=== PATIENT | male | born 1940 | race Caucasian/White ===

== ENCOUNTER 2020-11-19 10:12 | Outpatient (CLI) | payer MEDICARE, SELFPAY ==
--- NOTE | ~2020-11-19 | NM_ITS ---
EXAMINATION: NM bone scan whole body DATE: 11/19/2020 15:30 INDICATION: Prostate cancer. TECHNIQUE: 25 mCi Tc-99m HDP was administered intravenously. Delayed whole-body scintigrams were obt ained. COMPARISON: Chest 2 views 01/04/2019 FINDINGS: There is increased activity at left glenohumeral joint and the sternoclavicular joints ilda elating with osteoarthritis on radiographs. There is disc-centered increased activity in the spine co rrelating with severe degenerative disc disease on radiographs. There is joint-centered increased act ivity in the wrists and left foot without radiographic comparison, likely osteoarthritis. IMPRESSION: 1. No evidence of metastatic disease. Reviewed, dictated and finalized at location A.
== END 2020-11-19 10:13 | disposition home or self-care (01) ==
LOC: ANHIMG 10:19
PROVIDERS: PCP Family Medicine; Visit Provider Radiology Radiation Oncology
DX: C61 Malignant neoplasm of prostate (principal)
CPT/HCPCS: 78306; A9561

== ENCOUNTER 2020-12-31 09:42 | Outpatient (CLI) | payer MEDICARE, SELFPAY ==
--- NOTE | ~2020-12-31 | MR_ITS ---
. EXAMINATION: MR pelvis wo con DATE: 12/31/2020 11:20 INDICATION: Malignant neoplasm of the prostate TECHNIQUE: Magnetic resonance imaging (MRI) of the pelvis was performed without intravenous contrast. [place] sequences of the pelvis included axial and coronal T2-weighted SS FSE, axial, sagittal and coronal 2D FIESTA, axial 2D FIESTA FS, axial SSFSE-IR LEVY, axial dual-echo T1-weighted FSPGR, axial and coronal T1 weighted LAVA, 3D axial T2 Cube, axial diffusion-weighted SE with apparent diffusion c oefficient (ADC) maps. COMPARISON: None. FINDINGS: The prostate measures 4.2 x 2.5 x 4.4 cm. There is an approximately 1.6 cm exophytic nodule arising f rom the anterosuperior margin of the prostate which projects into the lumen of the bladder. There is mild trabeculation of the mucosal surface of the bladder with a couple small bladder diverticula. The re is a 4.4 x 2.5 x 1.3 cm T2 hyperintense collection of hydrogel is located between the anterior wal l of the rectum and the prostate. The collection of hydrogen gel is eccentrically positioned, greater towards the left with minimal separation between the right posterior margin of the prostate and the rectum. Small bilateral fat-containing inguinal hernias. No pathologically enlarged pelvic or inguina l lymphadenopathy. Mild lumbar levocurvature with severe spondylosis. No pathologic marrow replacing process. Visualized portion of the bowels are unremarkable. IMPRESSION: 1. Mildly enlarged prostate with small exophytic nodule projecting into the base of the bladder. 2. 4.5 x 2.5 x 1.3 cm collection of hydrocele positioned between the bladder and the rectum although this is eccentric repositioned and a small portion of the right posterior margin of the prostate ashanti ins in relatively close proximity to the rectum. 3. No evident metastatic disease. Reviewed, dictated and finalized at location A. IMPRESSION: 1. Mildly enlarged prostate with small exophytic nodule projecting into the bas e of the bladder. 2. 4.5 x 2.5 x 1.3 cm collection of hydrocele positioned between the bladder an d the rectum although this is eccentric repositioned and a small portion of the right posterior margin of the prostate remains in relatively close proximity t o the rectum. 3. No evident metastatic disease.
[2020-12-31 10:16] LABS: Estimated Glomerular Filt Rate 30
== END 2020-12-31 09:43 | disposition home or self-care (01) ==
PROVIDERS: PCP Family Medicine; Visit Provider Radiology Radiation Oncology
DX: C61 Malignant neoplasm of prostate (principal)
CPT/HCPCS: 72195

== ENCOUNTER → 2021-05-12 13:52 | Outpatient (CLI) | payer MEDICARE, SELFPAY ==
--- NOTE | ~2021-05-12 | MR_ITS ---
EXAMINATION: MR brain/brain stem wo con DATE: 05/12/2021 15:20 INDICATION: Other amnesia. TECHNIQUE: Magnetic resonance imaging (MRI) of the brain and brainstem was performed without intraven ous contrast. Sequences included sagittal and axial T1-weighted FSE, axial diffusion-weighted FS EPI, axial T2*-weighted GRE, axial T2-weighted FLAIR Propeller, and axial T2-weighted Propeller. Apparent diffusion coefficient (ADC) maps were created. COMPARISON: None. FINDINGS: There are scattered areas of nonspecific increased T2-weighted signal intensity in the cere bral white matter. There are old infarcts in right cerebellum and the nafisa. There is a small old infa rct in the left parietal periventricular white matter. There are scattered foci of old microhemorrhag e in the brain including the right cerebellum, right thalamus, and right lentiform nucleus. There is no acute infarction or abnormal intracranial mass lesion. The ventricles are normal in size. There ar e likely changes of ocular lens replacement surgeries. The paranasal sinuses are clear. The mastoid a ir cells are normal. IMPRESSION: 1. Old infarcts involving the right cerebellum, nafisa, and left parietal lobe. 2. 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 Reviewed, dictated and finalized at location A. DISPATCHER
--- NOTE | ~2021-05-12 | XR_ITS ---
EXAMINATION: XR orbit foreign body EXAM DATE: 05/12/2021 14:46 INDICATION: Checking for foreign body . TECHNIQUE: Frontal, lateral projections of the orbits. There is no prior study for comparison. FINDINGS: Dental bridge, hardware. No other radiopaque foreign bodies are identified. Orbital rims a re intact. Sinuses appear aerated. IMPRESSION: No unexpected radiopaque foreign bodies. Reviewed, dictated and finalized at location G. INALIST
[2021-05-12 14:57] LABS: Estimated Glomerular Filt Rate 26
== END ==
PROVIDERS: PCP Family Medicine; Visit Provider Physician Assistant
DX: R41.3 Other amnesia (principal); R93.0 Abnormal findings on diagnostic imaging of skull and head, not elsewhere classified
CPT/HCPCS: 70030; 70551

== ENCOUNTER 2021-09-18 10:38 | Outpatient (CLI) | payer MEDICARE, SELFPAY ==
--- NOTE | 2021-09-21 09:36 | WPDNEUROLOGY ---
Neurology EEG Report General Information Date of Study: 09/18/21 TEST eeg DIAGNOSIS dementia CONDITION OF RECORDING drowsy and sleep EEG NUMBER [id number] CLINICAL HISTORY patient reports he has noticed a decline in his memory over the last year or so there is a family history of dementia as well EEG DESCRIPTION basic resting occipital frequency consists of low-voltage 15 to 18 hertz per 2nd beta during drowsiness. Bilateral symmetrical sleep activity is noted during sleep with multiple EKG artifacts. Hyperventilation not done. Photic stimulation produced poor drive. Non paroxysmal. Nonfocal. Nonlateralizing. IMPRESSION no significant abnormalities noted
== END 2021-09-18 10:39 | disposition home or self-care (01) ==
PROVIDERS: PCP Family Medicine; Visit Provider Psychiatry & Neurology Neurology
DX: R41.3 Other amnesia (principal)
CPT/HCPCS: 95816

== ENCOUNTER 2021-11-19 06:55 | Observation (INO) | payer MEDICARE, SELFPAY ==
[2021-11-19] VITALS (24 sets, daily range): BP systolic 126–164; BP diastolic 56–74; PULSE 53–75; RESP 12–17; TEMP 36.5–37; O2SAT 92–100; BMI 60.9
--- NOTE | ~2021-11-19 | MR_ITS ---
EXAMINATION: MR brain/brain stem wo/w con DATE: 11/19/2021 12:11 INDICATION: Dysarthria. TECHNIQUE: Magnetic resonance imaging (MRI) of the brain and brainstem was performed without and with 16 mL MultiHance intravenous contrast. COMPARISON: Brain MRI 05/12/2021, head CT 11/19/2021 FINDINGS: There are scattered areas of nonspecific increased T2-weighted signal intensity in the cere bral white matter and nafisa. There are small old infarcts in right cerebellum and the nafisa. There are punctate foci of old microhemorrhage in the right cerebellum, right thalamus, and right basal ganglia . There are small old infarcts in the left basal ganglia. There is cystic encephalomalacia in the lef t parietal deep white matter. There is no intracranial hemorrhage, acute infarction, or abnormal intr acranial mass lesion. The ventricles are normal in size. There are likely changes of ocular lens repl acement surgeries. The paranasal sinuses are clear. The mastoid air cells are normal. IMPRESSION: 1. Old infarcts involving the right cerebellum, nafisa, left parietal lobe, and left basal ganglia. 2. Stable moderate nonspecific cerebral white matter disease, which likely represents chronic small v essel ischemic disease. Reviewed, dictated and finalized at location A. IMPRESSION: 1. Old infarcts involving the right cerebellum, nafisa, left parietal lobe, and l eft basal ganglia. 2. Stable moderate nonspecific cerebral white matter disease, which likely repr esents chronic small vessel ischemic disease.
--- NOTE | ~2021-11-19 | XR_ITS ---
EXAMINATION: XR chest 1V portable DATE: 11/19/2021 07:41 INDICATION: Slurred speech. TECHNIQUE: A single frontal view of the chest was obtained. COMPARISON: Chest 2 views 01/04/2019 FINDINGS: There is no pneumonia, pleural effusion, or pneumothorax. Cardiomegaly is noted. There is a small hiatal hernia. IMPRESSION: 1. Cardiomegaly. 2. Small hiatal hernia. Reviewed, dictated and finalized at location A.
--- NOTE | ~2021-11-19 | US_ITS ---
EXAMINATION: US carotid duplex BI DATE: 11/20/2021 10:29 INDICATION: Dysarthria. TECHNIQUE: Grayscale, color Doppler, and pulsed Doppler images of the cervical carotid arteries were obtained. The degree of vessel stenosis is placed in one of the following categories: normal, <50%, 5 0-69%, >=70% but less than near-occlusion, near-occlusion, or total occlusion. Note that percent sten osis relative to normal distal artery lumen diameter is indirectly measured from velocity measurement s as described by Prakash, et al. Radiology 2003; 229:340-346. COMPARISON: None. FINDINGS: RIGHT: The right common carotid artery (CCA) peak systolic velocity (PSV) is 90 cm/s. The right internal car otid artery (ICA) PSV is 70 cm/s. The right ICA end-diastolic velocity (EDV) is 14 cm/s. The right IC A/CCA PSV ratio is 0.8. Grayscale and color Doppler images yield an estimate of <50% diameter reducti on from plaque in the ICA. There is antegrade flow in the right vertebral artery. LEFT: The left CCA PSV is 87 cm/s. The left ICA PSV is 100 cm/s. The left ICA EDV is 12 cm/s. The left ICA/ CCA PSV ratio is 1.2. Grayscale and color Doppler images yield an estimate of <50% diameter reduction from plaque in the ICA. There is antegrade flow in the left vertebral artery. IMPRESSION: 1. <50% stenosis in the right internal carotid artery. 2. <50% stenosis in the left internal carotid artery. Reviewed, dictated and finalized at location A.
--- NOTE | ~2021-11-19 | CT_ITS ---
EXAMINATION: CT brain wo con DATE: 11/19/2021 07:01 INDICATION: Slurred speech. TECHNIQUE: Computed tomography (CT) of the head was performed without intravenous contrast. The mA wa s adjusted according to patient size. Iterative reconstruction technique was employed. The dose-lengt h product was 605.33 mGy-cm. COMPARISON: Brain MRI 05/12/2021 FINDINGS: There is an old infarct in the nafisa on the right. There are scattered areas of low attenuat ion in the cerebral white matter. There is no intracranial hemorrhage, acute infarction, or abnormal intracranial mass lesion. There are old infarcts in the left basal ganglia and left parietal lobe. Th e ventricles are normal in size. There are likely changes of ocular lens replacement surgeries. There is mild mucosal thickening in the paranasal sinuses. The mastoid air cells are normal. IMPRESSION: 1. Old infarcts involving the nafisa, basal ganglia, and left parietal lobe. 2. Stable moderate nonspecific cerebral white matter disease, which likely represents chronic small v essel ischemic disease. Reviewed, dictated and finalized at location A. IMPRESSION: 1. Old infarcts involving the nafisa, basal ganglia, and left parietal lobe. 2. Stable moderate nonspecific cerebral white matter disease, which likely repr esents chronic small vessel ischemic disease.
--- NOTE | 2021-11-19 06:56 | ECG_ITS ---
Measurements Intervals [place] Rate: 54 P: 14 MS: 232 QRS: -54 QRSD: 165 T: -43 QT: 487 QTc: 462 Interpretive Statements SINUS BRADYCARDIA WITH FIRST DEGREE AV BLOCK RIGHT BUNDLE BRANCH BLOCK LEFT ANTERIOR FASCICULAR BLOCK VOLTAGE CRITERIA FOR LVH NO PREVIOUS ECG AVAILABLE FOR COMPARISON Electronically Signed On 11-19-2021 18:18:38 CDT by Radha Funes M.D.
--- NOTE | 2021-11-19 07:20 | PC.NURSE ---
Patient resting comfortably in stretcher with family at bedside and call-light within reach. NAD. Patient denies complaints. NIH of 1 with some slurred speech noted. Patient alert and oriented. Will continue to address needs as they arise.
[2021-11-19 07:21] LABS: Basophils Percent Auto 0.2 % (0.2-1.2); Eosinophils Absolute Auto 0.4 K/mm3 (0-0.3); Hematocrit 34.1 % (42.0-52.0); Hemoglobin 10.9 g/dL (14.0-18.0); Immature Granulocyte Absolute 0.04 K/mm3 (0.00-0.031); Immature Granulocyte Percent A 0.7 % (0-0.5); Lymphocytes Absolute Auto 1.54 K/mm3 (0.9-3.2); Lymphocytes Percent Auto 28.6 % (18.3-44.2); Mean Corpuscular Hemoglobin 30.5 pg (26-34); Mean Corpuscular Volume 95.5 fl (80-100); Mean Platelet Volume 8.5 fl (7.4-10.4); Monocytes Absolute Auto 0.7 K/mm3 (0.1-0.6); Monocytes Percent Auto 12.8 % (2.6-8.5); Neutrophils Absolute Auto 2.7 K/mm3 (1.3-6.7); Neutrophils Percent Auto 49.7 % (45.5-73.1); Platelet Count Result 178 k/mm3 (150-375); Red Blood Count 3.57 M/mm3 (4.6-6.20); Red Cell Distribution Width 13.3 % (11.5-14.5); White Blood Count 5.4 K/mm3 (4.5-10.0)
[2021-11-19 07:22] LABS: Glucose Point of Care 101 mg/dl (65-105)
--- NOTE | 2021-11-19 07:23 | PC.NURSE ---
Patient report received from SHABBIR Garcia. All questions answered and care of patient assumed.
[2021-11-19 07:30] LABS: Prothrombin Time 12.9 Seconds (11.1-14.7)
[2021-11-19 07:31] LABS: Alanine Aminotransferase 15 U/L (6-50); Albumin Level 3.4 g/dL (3.5-5.1); Alkaline Phosphatase 64 U/L (38-126); Anion Gap 10 mmol/L (8-16); Aspartate Amino Transferase 26 U/L (17-59); Bilirubin,Total 0.5 mg/dL (0.2-1.3); Blood Urea Nitrogen 26 mg/dL (9-20); Calcium 8.4 mg/dL (8.4-10.2); Carbon Dioxide 20 mmol/L (22-30); Chloride 107 mmol/L (98-107); Estimated CRCL calculation 24 ml/min; Estimated Glomerular Filt Rate 30; Glucose 100 mg/dL (65-110); Potassium 3.7 mmol/L (3.4-5.0); Sodium 137 mmol/L (137-145)
[2021-11-19 07:41] LABS: Ethanol 213 mg/dL (<10)
--- NOTE | 2021-11-19 07:45 | PC.NURSE ---
Dr. Encarnacion back at bedside to update patient on lab results.
--- NOTE | 2021-11-19 08:35 | ED.NEUROSD ---
HPI - Neuro Symptoms/Deficit General Chief Complaint: Suspected CVA Stated Complaint: neuro symptoms Time Seen by Provider: 11/19/21 07:04 Source: patient, family, RN notes reviewed and old records reviewed Mode of arrival: EMS Limitations: altered mental status History of Present Illness HPI Narrative: This is an 81 year old male with history of CVA, prostate CA, CKD who presents for evaluation of possible stroke. Patient was last seen normal last night at midnight when he went to bed. His states he got up to go to bathroom at 545 am this morning but she did not talk to him. She went to check on him at 615 am and she states he was not acting right. She states he was not responding to her and his speech was slurred. She also reports he was having difficulty getting up off the toilet. She was able to move him to a chair and she called 911. EMS found patient to be oriented x 4 with slurred speech but he did not have focal deficits. Patient does not have any complaints. Timing confirmed by: spouse (last seen normal at midnight) Location: speech Relieving factors: none Exacerbating factors: none Associated symptoms: denies other symptoms Related Data Home Medications Medication Instructions Recorded Confirmed aspirin 81 mg tablet,delayed 81 mg PO HS 11/19/21 11/19/21 release (Adult Aspirin Regimen) donepezil 5 mg tablet 10 mg PO HS 11/19/21 11/19/21 irbesartan 75 mg tablet 75 mg PO HS 11/19/21 11/19/21 Allergies Allergy/AdvReac Type Severity Reaction Status Date / Time No Known Allergies Allergy Unknown Verified 11/19/21 07:05 Review of Systems Review of Systems: CONSTITUTIONAL: Denies fever, chills, or sweats. EYES: Denies visual changes, redness, or discharge. ENT: Denies rhinorrhea, congestion, sore throat, or otalgia. CARDIOVASCULAR: Denies chest pain, palpitations, or edema. RESPIRATORY: Denies cough or dyspnea. GASTROINTESTINAL: Denies abdominal pain, nausea, vomiting, or diarrhea. GENITOURINARY: Denies dysuria or hematuria. SKIN: Denies rash or itching. MUSCULOSKELETAL: Denies back pain, joint pain, or myalgia. NEUROLOGIC: Denies headache, numbness, or weakness. PSYCHIATRIC: Denies anxiety or depression. [facility] Past Medical History Medical History (Updated 11/19/21 @ 16:04 by Rachel Brown PA-C) Alcohol use Insomnia Memory loss of unknown cause Prostate cancer Right retinal detachment Tremor Family History Family History Father Family history of osteoporosis Family history of cataracts Asthma Family history of chronic obstructive pulmonary disease Malignant neoplasm of prostate Mother Family history of Alzheimer's disease Other Family history of arthritis Family history of malignant neoplasm Social History Social History Smoking status: Never smoker Second hand tobacco smoke exposure: No Alcohol intake: current Drinks per week: 5 Substance use: never Substance use type: does not use Gender identity (if verbalized by the patient): Male Spiritual care concerns: No Exam Const: General: cooperative, no acute distress, alert and well groomed Orientation/consciousness: oriented to person, oriented to place and patient oriented x3 HENMT: Head: normocephalic and atraumatic Face and sinus: normal facial exam, sinuses nontender and face symmetric Mouth: Yes Normal oral and palatal mucosa present, Yes lip normal, Yes oropharynx normal and Yes moist mucous membranes Throat: posterior oropharynx normal, tonsils normal and uvula midline Eyes: General: appearance normal, both eyes and all related structures Alignment and Position: alignment normal Periorbital: periorbital findings normal Eyelids: eyelids normal Pupils: Equal, round and reactive pupils present EOM: EOMs intact bilaterally Neck: Neck: normal visual inspection Chest: Chest palpatio
--- NOTE | 2021-11-19 09:07 | PC.NURSE ---
Attempted to collect urine sample. Patient stood at side of bed with assistance. Unable to urinate at this time. Water provided.
[2021-11-19 09:15] LABS: SARS-CoV-2 RNA PCR Negative
[2021-11-19 11:38] LABS: Glucose Point of Care 99 mg/dl (65-105)
[2021-11-19 13:12] LABS: Appearance Urine Clear (Clear); Bilirubin Urine Negative (Negative); Color Urine Yellow (Yellow); Glucose Urine UA Negative (Negative); Ketones Urine Negative (Negative); Leukocyte Esterase Ur Negative LEU/UL (Negative); Nitrate Urine Negative (Negative); Protein Urine Negative (Negative); Urobilinogen Urine 0.2 mg/dL (<2.0); pH Urine 5.5 (5.0-9.0)
[2021-11-19 13:20] LABS: Add Urine Microscopic? YES; Bacteria Urine Trace /hpf; Blood Urine Trace-Intact (Negative); WBC Urine 0-3 /hpf
[2021-11-19 16:47] LABS: Glucose Point of Care 82 mg/dl (65-105)
--- NOTE | 2021-11-19 17:25 | PM.IMHP ---
H&P: HPI History of Present Illness Date/Time: 11/19/21 17:25 Chief Complaint: Slurred speech. Narrative: This is an 81-year-old male with hypertension, dyslipidemia, hypothyroidism, benign prostatic hyperplasia, chronic kidney disease, memory loss, and prostate cancer who presented to the ED via EMS from home for evaluation of slurred speech. He seems to be a bit forgetful as to what occurred last night and as such some of the following is supplemented via a review of his electronic medical records as well as discussions with his , with the patient's permission. reports that the patient was in his usual state of health when she went to bed last night. She heard him get up at about 05:45 to use the restroom and about 30 minutes thereafter she went downstairs to check on him as he did not return. She became concerned when he did not respond to her immediately and when he started to talk his speech was slurred. He also had difficulty standing up and so she called 911. On EMS arrival he was alert and oriented x4 though his speech was noted to be slurred at that time. Head CT done on arrival showed no acute findings but did note old infarcts in the nafisa, basal ganglia, and left parietal lobe. then mentioned that he sometimes has an alcoholic drink at night when he is unable to sleep and in fact his up alcohol level on arrival was 213. He believes that he had ?a shot of whiskey? last night to help him sleep. Given findings of old stroke and continued slurred speech, he was admitted overnight for closer monitoring. He has since had a brain MRI which did not show any acute infarcts. At the time my evaluation he has no complaints whatsoever and he is resting comfortably. He specifically denies headache, vertigo, auditory and visual changes, dysarthria, dysphagia, facial droop, focal weakness, paresthesias (aside from mild numbness in fingers which is chronic, unchanged) chest pain, and palpitations. Review of Systems Review of Systems: Twelve systems were reviewed. No fever, chills, or sweats. No recent cold or flu symptoms. He occasionally has a glass or 2 of wine before bed. No history of alcohol withdrawal seizure. No signs or symptoms of alcohol withdrawal. No nausea, vomiting, diarrhea, or dysuria. Except as documented, all systems were reviewed and are negative. [facility] Past Medical History Medical History (Updated 11/19/21 @ 22:46 by Rachel Brown PA-C) Alcohol use Chronic kidney disease Baseline creatinine ranges from 2.10 to 2.40. 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 Right retinal detachment Tremor Surgical History Surgical History (Updated 11/19/21 @ 22:42 by Rachel Brown PA-C) History of corneal transplant Family History Family History Father Family history of osteoporosis Family history of cataracts Asthma Family history of chronic obstructive pulmonary disease Malignant neoplasm of prostate Mother Family history of Alzheimer's disease Other Family history of arthritis Family history of malignant neoplasm Social History Social History (Updated 11/19/21 @ 22:43 by Rachel Brown PA-C) Social History: Surrogate medical decision maker: Talisha Livingston, . Code status: Full code. Smoking status: Never smoker Second hand tobacco smoke exposure: No Alcohol intake: current Drinks per week: 5 Alcohol use details: 1 to 2 glasses of wine, several nights a week. Substance use: never Substance use type: does not use Additional living arrangements comments: Lives with in [place]. They have a son in [place] and a daughter who lives in the area. 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 Spiritual care concerns: No Meds Home
[2021-11-20] VITALS (10 sets, daily range): BP systolic 142–159; BP diastolic 64–67; PULSE 61–70; RESP 12–20; TEMP 36.4–36.9; O2SAT 94–99
[2021-11-20] MEDS: DONEPEZIL HCL 10 MG TABLET PO ×2 (00:08→20:57)
[2021-11-20] MEDS: ASPIRIN 81 MG ENTERIC TABLET PO ×2 (00:08→20:57)
[2021-11-20] MEDS: IRBESARTAN 75 MG TABLET PO ×2 (00:08→20:57)
[2021-11-20 05:45] LABS: Eosinophils Absolute Auto 0.2 K/mm3 (0-0.3); Eosinophils Percent Auto 3.2 % (0-4.4); Hematocrit 36.6 % (42.0-52.0); Hemoglobin 11.7 g/dL (14.0-18.0); Immature Granulocyte Absolute 0.02 K/mm3 (0.00-0.031); Immature Granulocyte Percent A 0.3 % (0-0.5); Lymphocytes Absolute Auto 0.64 K/mm3 (0.9-3.2); Lymphocytes Percent Auto 9.4 % (18.3-44.2); Mean Corpuscular Hemoglobin 30.6 pg (26-34); Mean Corpuscular Volume 95.8 fl (80-100); Mean Platelet Volume 8.5 fl (7.4-10.4); Monocytes Absolute Auto 0.5 K/mm3 (0.1-0.6); Monocytes Percent Auto 7.9 % (2.6-8.5); Neutrophils Absolute Auto 5.4 K/mm3 (1.3-6.7); Neutrophils Percent Auto 79.2 % (45.5-73.1); Platelet Count Result 184 k/mm3 (150-375); Red Blood Count 3.82 M/mm3 (4.6-6.20); Red Cell Distribution Width 13.2 % (11.5-14.5); White Blood Count 6.8 K/mm3 (4.5-10.0)
[2021-11-20 05:58] LABS: Alanine Aminotransferase 15 U/L (6-50); Albumin Level 3.6 g/dL (3.5-5.1); Alkaline Phosphatase 56 U/L (38-126); Anion Gap 6 mmol/L (8-16); Aspartate Amino Transferase 28 U/L (17-59); Bilirubin,Total 1.1 mg/dL (0.2-1.3); Blood Urea Nitrogen 26 mg/dL (9-20); Calcium 8.4 mg/dL (8.4-10.2); Carbon Dioxide 25 mmol/L (22-30); Chloride 105 mmol/L (98-107); Estimated CRCL calculation 23 ml/min; Estimated Glomerular Filt Rate 32; Glucose 86 mg/dL (65-110); Magnesium 2.1 mg/dL (1.6-2.3); Potassium 4.4 mmol/L (3.4-5.0); Sodium 136 mmol/L (137-145)
[2021-11-20] MEDS: LEVOTHYROXINE SODIUM 50 MCG TABLET PO (06:13)
[2021-11-20 07:40] LABS: Glucose Point of Care 82 mg/dl (65-105)
[2021-11-20] MEDS: ENOXAPARIN 40 MG/0.4 ML SYRINGE SUB-Q (09:11)
[2021-11-20] MEDS: TAMSULOSIN HCL 0.4 MG CAPSULE PO (09:11)
--- NOTE | 2021-11-20 11:21 | WPDNEURCNPN ---
Assessment and Plan Assessment and plan (1) Neurologic gait dysfunction: Code(s): R26.9 - Unspecified abnormalities of gait and mobility Status: Acute Plan EEG has revealed bilateral theta and delta activity compatible with the ongoing cerebral dysfunction in addition to the history of underlying bilateral stroke but there is no evidence of any paroxysmal phenomenon he can be continued on his medication as such along with the aspirin 81 mg daily and the precautions for the gait dysfunction balance difficulties to be emphasized to be followed in the office in 3 months Consult date: 11/20/21 Time Seen: 11:00 Reason for consult: cerebrovascular accident HPI: Rhett Livingston is a 81 year old male admitted to the hospital through the emergency room with history of cerebrovascular accident in the past in addition to underlying history of prostatic carcinoma, chronic renal disease, and with changes in neurological status. As per the information available he got up to go to the bathroom at 5:45 a.m., when she went to checking on 6:15 a.m. he was not acting right his speech was slurred he was having difficulties in getting up off the toilet was able to move him to a chair she call the 911 by the time EMS arrived he was awake alert oriented x4 but speech was slurred the CC was brought to the emergency room. He has been taking aspirin 81 mg daily, donepezil 5 mg 2 of them at night and irbesartan 75 mg at night, as mentioned above he has history of alcohol use, insomnia, dementia, prostatic carcinoma, and right retinal detachment, addition to tremor, he is a current alcohol intake or 5 drinks per week never substance user, evaluation up until now includes the Doppler study of the carotid which is with less than 50% stenosis of the right internal and left internal carotid, MRI of the brain documents the old infarct involving the right cerebellum nafisa left parietal lobe and left basal ganglia, chest x-ray with cardiomegaly with small hiatal hernia Review of Systems Review of Systems: All systems reviewed & are unremarkable except as noted in HPI and below [facility] Past Medical History Medical History (Updated 11/20/21 @ 11:30 by Casa Turner MD) Alcohol use Chronic kidney disease Baseline creatinine ranges from 2.10 to 2.40. 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 Right retinal detachment Tremor Surgical History Surgical History (Updated 11/19/21 @ 22:42 by Rachel Brown PA-C) History of corneal transplant Family History Family History Father Family history of osteoporosis Family history of cataracts Asthma Family history of chronic obstructive pulmonary disease Malignant neoplasm of prostate Mother Family history of Alzheimer's disease Other Family history of arthritis Family history of malignant neoplasm Social History Social History (Updated 11/19/21 @ 22:43 by Rachel Brown PA-C) Social History: Surrogate medical decision maker: Talisha Livingston, . Code status: Full code. Smoking status: Never smoker Second hand tobacco smoke exposure: No Alcohol intake: current Drinks per week: 5 Alcohol use details: 1 to 2 glasses of wine, several nights a week. Substance use: never Substance use type: does not use Additional living arrangements comments: Lives with in [place]. They have a son in [place] and a daughter who lives in the area. 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 Spiritual care concerns: No Meds Home Medications and Allergies Home Medications Medication Instructions Recorded Confirmed Type tamsulosin 0.4 mg capsule 0.4 mg PO DAILY #90 caps 07/14/20 11/19/21 Rx levothyroxine 50 mcg tablet 50 mcg PO DAILY #90
[2021-11-20 11:49] LABS: Glucose Point of Care 120 mg/dl (65-105)
--- NOTE | 2021-11-20 12:07 | WPDNEUROLOGY ---
Neurology EEG Report General Information Date of Study: 11/20/21 TEST eeg DIAGNOSIS Confusion CONDITION OF RECORDING awake drowsy and sleep EEG NUMBER [id number] CLINICAL HISTORY patient reports he was brought into hospital for confusion and slurred speech. Feels back to normal today EEG DESCRIPTION background rhythm consists of 2 to 3 hertz per 2nd delta of medium to high voltage admixed with low to medium voltage 5 to 7 hertz per 2nd theta activity during wakefulness. Bilateral symmetrical sleep activity seen during sleep with intermittent regular EKG artifacts. Hyperventilation not done. Photic stimulation not done. Non paroxysmal. Nonfocal. No nonlateralizing. IMPRESSION Abnormal record due to the presence of bihemispheric theta and delta activity during wakefulness even though sleep activity is bilaterally symmetrical. There is no evidence of paroxysmal discharge throughout the tracing. Clinical correlation recommended as these abnormalities could be suggestive of underlying organic or metabolic encephalopathy
[2021-11-20] MEDS: PERFLUTREN LIPID MICROSPHERES 1.5 ML VIAL DILUTED TO 10 ML TOTAL VOLUME IV PUSH (13:00)
--- NOTE | 2021-11-20 14:51 | PM.IMPN ---
Progress Note: A&P Assessment and Plan (1) Slurred speech: Code(s): R47.81 - Slurred speech Status: Acute Assessment and Plan: Resolved. No evidence of acute infarct on brain MRI. Surrogate speech was most likely related to alcohol intoxication; he obviously consumed more alcohol overnight than he thought. 11/20/2021 interval history: patient is sitting in the chair his symptoms have resolved, CT scan of the head and MRI of the brain no acute injury, to further evaluate cardiac echo and carotid ultrasounds ordered and pending, patient denies any upper or lower extremity deficit is able to ambulate without any difficulty, will continue to monitor once the carotid ultrasound and cardiac echo reported and normal will discharge the patient home. patient was seen by Neurology and reviewed the EEG no acute injury recommended to continue aspirin and may follow-up in 3 months. (2) Alcohol intoxication: Code(s): F10.929 - Alcohol use, unspecified with intoxication, unspecified Status: Acute Assessment and Plan: Patient seems sober at the time my evaluation. (3) Chronic kidney disease: Code(s): N18.9 - Chronic kidney disease, unspecified Status: Acute Assessment and Plan: Creatinine is stable on review of previous labs. (4) Mixed hyperlipidemia: Code(s): E78.2 - Mixed hyperlipidemia Status: Acute Assessment and Plan: Continue statin; LFTs within normal limits. (5) Hypertension: Code(s): I10 - Essential (primary) hypertension Status: Acute Assessment and Plan: Blood pressures were reviewed and they are reasonably well controlled. Continue antihypertensives and monitor. (6) Hypothyroidism: Code(s): E03.9 - Hypothyroidism, unspecified Status: Acute Assessment and Plan: Continue levothyroxine. Subjective Date/time seen: 11/20/21 14:51 Slurred speech. HPI-Narrative: This is an 81-year-old male with hypertension, dyslipidemia, hypothyroidism, benign prostatic hyperplasia, chronic kidney disease, memory loss, and prostate cancer who presented to the ED via EMS from home for evaluation of slurred speech. He seems to be a bit forgetful as to what occurred last night and as such some of the following is supplemented via a review of his electronic medical records as well as discussions with his , with the patient's permission. reports that the patient was in his usual state of health when she went to bed last night. She heard him get up at about 05:45 to use the restroom and about 30 minutes thereafter she went downstairs to check on him as he did not return. She became concerned when he did not respond to her immediately and when he started to talk his speech was slurred. He also had difficulty standing up and so she called 911. On EMS arrival he was alert and oriented x4 though his speech was noted to be slurred at that time. Head CT done on arrival showed no acute findings but did note old infarcts in the nafisa, basal ganglia, and left parietal lobe. then mentioned that he sometimes has an alcoholic drink at night when he is unable to sleep and in fact his up alcohol level on arrival was 213. He believes that he had ?a shot of whiskey? last night to help him sleep. Given findings of old stroke and continued slurred speech, he was admitted overnight for closer monitoring. He has since had a brain MRI which did not show any acute infarcts. At the time my evaluation he has no complaints whatsoever and he is resting comfortably. He specifically denies headache, vertigo, auditory and visual changes, dysarthria, dysphagia, facial droop, focal weakness, paresthesias (aside from mild numbness in fingers which is chronic, unchanged) chest pain, and palpitations. 11/20/2021 interval history: patient is sitting in the chair his symptoms have resolved, CT scan of the head and MRI of the brain no acute injury, to further ev
--- NOTE | 2021-11-20 22:49 | ECHO_ITS ---
Patient Info Name: Rhett Livingston Age: 81 years : 1940 Gender: Male Ht: 65 in Wt: 160 lbs BSA: 1.84 m2 HR: 78 bpm BP: 159 / 67 mmHg Heart Rhythm: Sinus Rhythm Technical Quality: Good Exam Date: 11/20/2021 12:45 PM Exam Location: [facility] Card Pulmonary Patient Status: Inpatient Admit Date: 11/19/2021 Staff Ordering Physician: Rachel Brown PA-C Meat Stuffer: Citlaly Kerns RDCS Attending Provider: Saurabh Meza MD Referring Physician: Stephanie PATE; Exam Type: CA echo dop color flow w con Study Info Indications - htn neuro symptoms Complete two-dimentional, color flow and Doppler transthoracic echocardiogram is performed with agitated saline and with contrast to opacify the left ventricle and to improve the delineation of the left ventricle endocardial borders. Summary 1. Left ventricular chamber dimension is normal. 2. Left ventricular systolic function is normal, estimated at 65-70%. 3. There is mildly increased left ventricular wall thickness. 4. The left ventricular diastolic function is grade I diastolic dysfunction. 5. Left atrial chamber dimension is moderately enlarged. 6. Right atrial chamber dimension is moderately enlarged. 7. There is no aortic valve stenosis. 8. There is trace mitral valve regurgitation. 9. There is mild tricuspid valve regurgitation. 10. Mild pulmonary hypertension, estimated pulmonary arterial systolic pressure is 43 mmHg. Left Ventricle Left ventricular chamber dimension is normal. Left ventricular systolic function is normal, estimated at 65-70%. There is mildly increased left ventricular wall thickness. The left ventricular diastolic function is grade I diastolic dysfunction. Right Ventricle Right ventricular chamber dimension is mildly enlarged. Right ventricular systolic function is normal. Left Atria Left atrial chamber dimension is moderately enlarged. Right Atria Right atrial chamber dimension is moderately enlarged. Aortic Valve The aortic valve is probable trileaflet. There is no aortic valve stenosis. There is no aortic valve regurgitation. Pulmonic Valve The pulmonic valve is normal. There is trace pulmonic regurgitation. Mitral Valve The mitral valve has normal leaflets. There is trace mitral valve regurgitation. The mitral valve annulus is mildly calcified. Tricuspid Valve The tricuspid valve leaflets are normal. There is mild tricuspid valve regurgitation. Mild pulmonary hypertension, estimated pulmonary arterial systolic pressure is 43 mmHg. Pericardium/Pleural The pericardium appears normal. There is trivial pericardial effusion. Aorta The aortic root size at the sinus of Valsalva is normal. There is mild aortic atherosclerosis. Left Ventricular Outflow Tract Name Value Normal LVOT 2D LVOT Diameter 2.00 cm LVOT Doppler LVOT Peak Gradient 6 mmHg LVOT Mean Gradient 3 mmHg LVOT VTI 23.04 cm LVOT VTI/AV VTI Ratio 0.73 LVOT Stroke Volume 72.26 ml
[2021-11-21] VITALS: PULSE 64
[2021-11-21 04:00] VITALS: PULSE 61
[2021-11-21 05:59] VITALS: BP 136/63; PULSE 70; RESP 18; TEMP 36.2; O2SAT 97
[2021-11-21] MEDS: LEVOTHYROXINE SODIUM 50 MCG TABLET PO (06:03)
[2021-11-21 08:00] VITALS: PULSE 65
[2021-11-21] MEDS: ENOXAPARIN 40 MG/0.4 ML SYRINGE SUB-Q (09:14)
[2021-11-21] MEDS: TAMSULOSIN HCL 0.4 MG CAPSULE PO (09:14)
--- NOTE | 2021-11-21 10:01 | PM.DS ---
DS: Admitting Diagnosis Discharge Date 11/21/2021 Admitting Diagnosis slurred speech DS: Discharge Diagnosis Discharge Diagnosis (1) Slurred speech: Code(s): R47.81 - Slurred speech Status: Acute Assessment and Plan: Resolved. No evidence of acute infarct on brain MRI. Surrogate speech was most likely related to alcohol intoxication; he obviously consumed more alcohol overnight than he thought. 11/20/2021 interval history: patient is sitting in the chair his symptoms have resolved, CT scan of the head and MRI of the brain no acute injury, to further evaluate cardiac echo and carotid ultrasounds ordered and pending, patient denies any upper or lower extremity deficit is able to ambulate without any difficulty, will continue to monitor once the carotid ultrasound and cardiac echo reported and normal will discharge the patient home. patient was seen by Neurology and reviewed the EEG no acute injury recommended to continue aspirin and may follow-up in 3 months. (2) Alcohol intoxication: Code(s): F10.929 - Alcohol use, unspecified with intoxication, unspecified Status: Acute Assessment and Plan: Patient seems sober at the time my evaluation. (3) Chronic kidney disease: Code(s): N18.9 - Chronic kidney disease, unspecified Status: Acute Assessment and Plan: Creatinine is stable on review of previous labs. (4) Mixed hyperlipidemia: Code(s): E78.2 - Mixed hyperlipidemia Status: Acute Assessment and Plan: Continue statin; LFTs within normal limits. (5) Hypertension: Code(s): I10 - Essential (primary) hypertension Status: Acute Assessment and Plan: Blood pressures were reviewed and they are reasonably well controlled. Continue antihypertensives and monitor. (6) Hypothyroidism: Code(s): E03.9 - Hypothyroidism, unspecified Status: Acute Assessment and Plan: Continue levothyroxine. DS: Summary Hospital Course Reason for hospitalization: Slurred speech. HPI-Narrative: This is an 81-year-old male with hypertension, dyslipidemia, hypothyroidism, benign prostatic hyperplasia, chronic kidney disease, memory loss, and prostate cancer who presented to the ED via EMS from home for evaluation of slurred speech. He seems to be a bit forgetful as to what occurred last night and as such some of the following is supplemented via a review of his electronic medical records as well as discussions with his , with the patient's permission. reports that the patient was in his usual state of health when she went to bed last night. She heard him get up at about 05:45 to use the restroom and about 30 minutes thereafter she went downstairs to check on him as he did not return. She became concerned when he did not respond to her immediately and when he started to talk his speech was slurred. He also had difficulty standing up and so she called 911. On EMS arrival he was alert and oriented x4 though his speech was noted to be slurred at that time. Head CT done on arrival showed no acute findings but did note old infarcts in the nafisa, basal ganglia, and left parietal lobe. then mentioned that he sometimes has an alcoholic drink at night when he is unable to sleep and in fact his up alcohol level on arrival was 213. He believes that he had ?a shot of whiskey? last night to help him sleep. Given findings of old stroke and continued slurred speech, he was admitted overnight for closer monitoring. He has since had a brain MRI which did not show any acute infarcts. At the time my evaluation he has no complaints whatsoever and he is resting comfortably. He specifically denies headache, vertigo, auditory and visual changes, dysarthria, dysphagia, facial droop, focal weakness, paresthesias (aside from mild numbness in fingers which is chronic, unchanged) chest pain, and palpitations. Hospital Course: patient is sitting in the chair h
== END 2021-11-21 12:50 | disposition home or self-care (01) ==
LOC: ANHED 09:13 → ANH2MED 18:46
PROVIDERS: Physician Assistant; Admitting Provider Internal Medicine; Emergency Provider General Practice; PCP Family Medicine; Visit Provider Family Medicine
DX: R47.81 Slurred speech (principal); F10.929 Alcohol use, unspecified with intoxication, unspecified; G47.00 Insomnia, unspecified; R41.3 Other amnesia; R26.9 Unspecified abnormalities of gait and mobility; R29.702 NIHSS score 2; R90.82 White matter disease, unspecified; R41.0 Disorientation, unspecified; I67.89 Other cerebrovascular disease; I65.23 Occlusion and stenosis of bilateral carotid arteries; K44.9 Diaphragmatic hernia without obstruction or gangrene; Z80.42 Family history of malignant neoplasm of prostate; E78.2 Mixed hyperlipidemia; I27.20 Pulmonary hypertension, unspecified; N40.0 Benign prostatic hyperplasia without lower urinary tract symptoms; I12.9 Hypertensive chronic kidney disease with stage 1 through stage 4 chronic kidney disease, or unspecified chronic kidney disease; E03.9 Hypothyroidism, unspecified; N18.9 Chronic kidney disease, unspecified; R20.0 Anesthesia of skin; I44.0 Atrioventricular block, first degree; I44.4 Left anterior fascicular block; R00.1 Bradycardia, unspecified; Z20.822 Contact with and (suspected) exposure to COVID-19; I07.1 Rheumatic tricuspid insufficiency; Z72.89 Other problems related to lifestyle; Z86.73 Personal history of transient ischemic attack (TIA), and cerebral infarction without residual deficits; Z85.46 Personal history of malignant neoplasm of prostate; Z79.82 Long term (current) use of aspirin; Z79.899 Other long term (current) drug therapy
CPT/HCPCS: 36415; 70450; 70553; 71045; 80053; 80307; 81001; 82948; 83735; 84443; 84484; 85025; 85610; 85730; 93005; 93880; 95816; 96372; 96374; 97161; 97165; 99285; A9270; A9577; C8929; C9803; G0378; J1650; Q9957; U0003; U0005

== ENCOUNTER 2023-03-09 13:46 | Outpatient (CLI) | payer MEDICARE, SELFPAY ==
--- NOTE | ~2023-03-09 | XR_ITS ---
XR chest 2V 03/09/2023 14:10 Indication: Wheezing. Procedure: PA and lateral views of the chest Comparison: 11/19/2021 Findings: Cardiomegaly. Enlarged central pulmonary arteries. Small pleural effusions. Dependent atele ctasis. No edema or focal pneumonia. No pneumothorax. Impression: 1: Enlarged central pulmonary arteries, suspicious for pulmonary hypertension. 2: Small pleural effusions. Reviewed, dictated and finalized at location B. ITECTURAL INSPECTOR Impression: 1: Enlarged central pulmonary arteries, suspicious for pulmonary hypertension. 2: Small pleural effusions.
== END 2023-03-09 13:47 | disposition home or self-care (01) ==
PROVIDERS: PCP Family Medicine; Visit Provider Physician Assistant Medical
DX: R06.2 Wheezing (principal); R79.81 Abnormal blood-gas level; J90 Pleural effusion, not elsewhere classified
CPT/HCPCS: 71046

== ENCOUNTER 2023-04-08 16:41 | Emergency (ER) | payer MEDICARE, SELFPAY ==
--- NOTE | ~2023-04-08 | XR_ITS ---
EXAMINATION: XR abdomen gastric tube insert DATE: 04/08/2023 17:08 INDICATION: Nasogastric tube placement TECHNIQUE: A supine view of the abdomen and lower chest was obtained for evaluation of feeding tube placement. COMPARISON: None. FINDINGS: Nasogastric tube tip and proximal side port in the body the stomach. Nonspecific nonobstructive bowel gas pattern with gas throughout multiple nondilated loops of large and small bowel. Visualized porti on of lungs are clear. Cardiomegaly with left paracardial fat pad. S-shaped curvature of the thoracol umbar spine with severe spondylosis. IMPRESSION: 1. Nasogastric tube in the stomach. Reviewed, dictated and finalized at location A. REPAIRER
--- NOTE | 2023-04-08 16:59 | ED.EXTPRO ---
HPI - Extremity Problem General Chief complaint: Unspecified Stated complaint: NG tube placement History of Present Illness HPI Narrative: 82-year-old male presenting to the emergency department for placement of an NG tube. [facility] They are hoping to have a G-tube placed due to decreased p.o. intake and increased risk of aspiration. Fortunately GI is not available so the plan by the [facility] hospitalist was to have the NG tube placed and have the patient transferred back to [facility]. Related Data Home Medications Medication Instructions Recorded Confirmed acetaminophen 650 mg rectal 650 mg RECTAL Q6H PRN Fever Or Pain 04/03/23 04/03/23 suppository albuterol sulfate 0.63 mg/3 mL 0.63 mg inhalation Q6H PRN 04/03/23 04/03/23 solution for nebulization Shortness Of Breath Or Wheezing apixaban 5 mg tablet See Rx Instructions .Route .COMPLEX 04/03/23 04/03/23 empagliflozin 10 mg tablet 10 mg PO DAILY 04/03/23 04/03/23 (Jardiance) hydralazine 25 mg tablet 25 mg PO Q8H 04/03/23 04/03/23 ipratropium bromide 0.02 % 0.5 mg inhalation Q6H PRN 04/03/23 04/03/23 solution for inhalation Shortness Of Breath Or Wheezing isosorbide dinitrate 10 mg tablet 10 mg PO Q8H 04/03/23 04/03/23 metoprolol succinate 25 mg 25 mg PO DAILY 04/03/23 04/03/23 tablet,extended release 24 hr (Toprol XL) pantoprazole 20 mg tablet,delayed 20 mg PO QAM 04/03/23 04/03/23 release piperacillin-tazobactam 4.5 gram 4.5 g IV Q8H 04/03/23 04/03/23 intravenous solution pitavastatin calcium 2 mg tablet 2 mg PO DAILY 04/03/23 04/03/23 Allergies Allergy/AdvReac Type Severity Reaction Status Date / Time No Known Allergies Allergy Unknown Verified 04/08/23 17:07 Review of Systems Review of Systems: All systems reviewed & are unremarkable except as noted in HPI and below PMFSH Past Medical History Medical History Alcohol use Chronic kidney disease Baseline creatinine ranges from 2.10 to 2.40. 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 Right retinal detachment Tremor Surgical History Surgical History History of corneal transplant Family History Family History Father Family history of osteoporosis Family history of cataracts Asthma Family history of chronic obstructive pulmonary disease Malignant neoplasm of prostate Mother Family history of Alzheimer's disease Other Family history of arthritis Family history of malignant neoplasm Social History Social History Social History: Surrogate medical decision maker: Talisha Livingston, . Code status: Full code. Smoking status: Never smoker Second hand tobacco smoke exposure: No Alcohol intake: former Drinks per week: 1 Alcohol use details: BEER Substance use: never Substance use type: does not use Living arrangements: with family Additional living arrangements comments: Lives with in [place]. They have a son in [place] and a daughter who lives in the area. 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 Spiritual care concerns: No Exam Narrative: APPEARANCE: Well appearing, no pain, no distress, well-nourished. HEAD: normocephalic, atraumatic. EYES: PERRLA/EOMI, conjunctivae clear. NOSE: Normal no drainage NECK: Supple. No adenopathy, no masses. RESPIRATORY: Airway patent, respirations nonlabored. Clear to auscultation bilaterally, no rales, rhonchi, wheezing. CARDIOVASCULAR: Regular rate and rhythm without murmurs rubs or gallops. ABDOMINAL: Soft, nontender, nondistended,
[2023-04-08 17:04] VITALS: BP 116/54; PULSE 87; RESP 16; TEMP 36.5; O2SAT 97
[2023-04-08 17:36] VITALS: BP 107/50; PULSE 83; RESP 16; O2SAT 97
[2023-04-08 19:21] VITALS: BP 114/64; PULSE 71; RESP 18; TEMP 36.6; O2SAT 94
== END 2023-04-08 19:22 ==
PROVIDERS: Emergency Provider Emergency Medicine; PCP Family Medicine
DX: Z46.59 Encounter for fitting and adjustment of other gastrointestinal appliance and device (principal); I12.9 Hypertensive chronic kidney disease with stage 1 through stage 4 chronic kidney disease, or unspecified chronic kidney disease; N18.9 Chronic kidney disease, unspecified; E03.9 Hypothyroidism, unspecified; Z94.7 Corneal transplant status; Z86.73 Personal history of transient ischemic attack (TIA), and cerebral infarction without residual deficits; Z85.46 Personal history of malignant neoplasm of prostate; Z92.3 Personal history of irradiation; Z79.84 Long term (current) use of oral hypoglycemic drugs; Z79.01 Long term (current) use of anticoagulants
CPT/HCPCS: 99283

== ENCOUNTER 2023-04-12 19:27 | Observation (INO) | payer MEDICARE, SELFPAY ==
--- NOTE | 2023-04-12 19:28 | PM.IMHP ---
H&P: HPI History of Present Illness Date/Time: 04/12/23 22:00 Chief Complaint: Dysphagia. Narrative: This is an 82-year-old male with history of recent stroke with left-sided deficit, heart failure with preserved ejection fraction, hypertension, dyslipidemia, hypothyroidism, benign prostatic hyperplasia, chronic kidney disease, memory loss, and prostate cancer who is being directly admitted to the medical floor from [facility] with dysphagia and for consideration of feeding to. He presented to [facility] on 03/22/2023 with left-sided weakness, left facial droop, and right gaze preference within an NIH SS score of 20. Brain CT at that time showed a right MCA territory infarction and he was not a candidate for tPA or TNK. Evaluation at that time was also significant for new onset heart failure with preserved ejection fraction. YOMAIRA showed possible LV thrombus and he was started on apixaban. He was discharged to [facility] for acute rehabilitation. He failed a swallow study on 04/06/2023 and an NG tube has been placed for supplemental nutrition. He is now being admitted for consideration of PEG tube. At the time my evaluation he is resting comfortably. He has no current complaints. Review of Systems Review of Systems: Twelve systems were reviewed but are somewhat limited as he seems confused. He denies feelings of being feverish. No chills or sweats. No cold or flu symptoms. No chest pain shortness a breath. He denies nausea and vomiting. [facility] Past Medical History Medical History Alcohol use Cerebrovascular accident (03/2023) Right MCA territory with left-sided weakness. Chronic anticoagulation Chronic kidney disease Baseline creatinine ranges from 2.10 to 2.40. Fuchs' corneal dystrophy Heart failure with preserved ejection fraction Hypertension Hypothyroidism Insomnia Memory loss of unknown cause Prostate cancer Status post radiation in 2020. Right retinal detachment Tremor Surgical History Surgical History History of corneal transplant Family History Family History Father Family history of osteoporosis Family history of cataracts Asthma Family history of chronic obstructive pulmonary disease Malignant neoplasm of prostate Mother Family history of Alzheimer's disease Other Family history of arthritis Family history of malignant neoplasm Social History Social History Social History: Surrogate medical decision maker: Talisha Livingston, . Code status: Full code. Smoking status: Unknown if ever smoked Second hand tobacco smoke exposure: No Alcohol intake: former Drinks per week: 1 Alcohol use details: BEER Substance use: never Substance use type: does not use Living arrangements: with family Additional living arrangements comments: Lives with in [place]. They have a son in [place] and a daughter who lives in the area. 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 Spiritual care concerns: No Meds Home Medications and Allergies Home Medications Medication Instructions Recorded Confirmed Type tamsulosin 0.4 mg capsule 0.4 mg PO DAILY #90 caps 10/18/22 04/12/23 Rx levothyroxine 50 mcg tablet 50 mcg PO DAILY #90 tabs 02/07/23 04/12/23 Rx acetaminophen 650 mg rectal 650 mg RECTAL Q6H PRN Fever Or Pain 04/03/23 04/12/23 History suppository albuterol sulfate 0.63 mg/3 mL 0.63 mg inhalation Q6H PRN 04/03/23 04/12/23 History solution for nebulization Shortness Of Breath Or Wheezing hydralazine 25 mg tablet 25 mg PO Q8H 04/03/23 04/12/23 History isosorbide dinitrate 10 mg tablet 10 mg PO Q8H 04/03/23 04/12/23 History atorvastatin 10 mg tablet 10 mg PO DAILY 04/12/23 04/12/23 History
--- NOTE | 2023-04-12 19:41 | ADMGEN ---
This patient, Rhett Livingston, was admitted to Medical Room 344-01. Patient/family oriented to hospital policies and general routines including ID bracelet, bed and alarms, visiting hours, pain management, procedures, bathroom and other care routines, personal items, smoking policy, room service/diet, and visiting hours. Information on how to activate the Rapid Response Team has been discussed. Patient/Family are encouraged to report perceived risks to care and to ask questions if they do not understand what they are told or what they should do.
[2023-04-12 20:00] VITALS: O2SAT 96
[2023-04-12 20:39] VITALS: BP 111/58; PULSE 84; RESP 18; TEMP 36.8; O2SAT 96; BMI 26.4
[2023-04-13] VITALS (10 sets, daily range): BP systolic 105–151; BP diastolic 56–75; PULSE 75–85; RESP 16–20; TEMP 36.4–37.1; O2SAT 90–100; BMI 27.3
[2023-04-13 05:51] LABS: Hematocrit 30.8 % (42.0-52.0); Hemoglobin 8.9 g/dL (14.0-18.0); Mean Corpuscular HGB Conc 28.9 g/dl (32-36); Mean Corpuscular Hemoglobin 23.7 pg (26-34); Mean Corpuscular Volume 81.9 fl (80-100); Mean Platelet Volume 9.3 fl (7.4-10.4); Platelet Count Result 247 k/mm3 (150-375); Red Blood Count 3.76 M/mm3 (4.6-6.20); Red Cell Distribution Width 25.5 % (11.5-14.5); White Blood Count 7.6 K/mm3 (4.5-10.0)
[2023-04-13 06:00] LABS: Anion Gap 7 mmol/L (8-16); Blood Urea Nitrogen 22 mg/dL (9-20); Calcium 8.5 mg/dL (8.4-10.2); Carbon Dioxide 25 mmol/L (22-30); Chloride 103 mmol/L (98-107); Estimated CRCL calculation 25 ml/min; Estimated Glomerular Filt Rate 39; Glucose 103 mg/dL (65-110); Magnesium 2.1 mg/dL (1.6-2.3); Potassium 4.3 mmol/L (3.4-5.0); Sodium 135 mmol/L (137-145)
--- NOTE | 2023-04-13 08:42 | WPDGICN ---
Assessment and Plan Assessment and plan (1) Dysphagia: Code(s): R13.10 - Dysphagia, unspecified Status: Acute Assessment and Plan: due to recent stroke he has not been able to swallow. He has been assessed by speech therapy it is felt that he would be best served with gastrostomy tube feedings. (2) Protein calorie malnutrition: Code(s): E46 - Unspecified protein-calorie malnutrition Status: Acute Assessment and Plan: Due to inability to swallow he is at risk for malnutrition. NG tube had been placed last week to provide tube feedings for few days. (3) Chronic anticoagulation: Code(s): Z79.01 - emt intermediate (current) use of anticoagulants Status: Acute Assessment and Plan: Apixaban had been started after his cerebrovascular accident. That has now been held for 48 hours. (4) Recent cerebrovascular accident: Code(s): Z86.73 - Personal history of transient ischemic attack (TIA), and cerebral infarction without residual deficits Status: Acute (5) Memory loss of unknown cause: Code(s): R41.3 - Other amnesia Status: Acute Plan Placement of percutaneous endoscopic gastrostomy tube today GI Consult Note Consult date/time: 04/13/23 08:42 HPI: Rhett Livingston is a 82 year old male Who had originally been seen in our office with complaints of chronic diarrhea. He had also expressed difficulty with swallowing, particularly with liquids. He was scheduled to have endoscopy colonoscopy this week as an outpat ient. Unfortunately a couple weeks after that office visit he suffered a stroke. He was hospitalized at [facility]. He was not a candidate for thrombolytics therapy. He was started on apixaban and has been at a rehabilitation in-situ. There he has had this aphasia and risk of aspiration. For that reason he is transfer to acute care with hopes of placement of a gastrostomy tube. Review of Systems Review of Systems: All systems reviewed & are unremarkable except as noted in HPI and below PMFSH Past Medical History Medical History Alcohol use Cerebrovascular accident (03/2023) Right MCA territory with left-sided weakness. Chronic anticoagulation Chronic kidney disease Baseline creatinine ranges from 2.10 to 2.40. Fuchs' corneal dystrophy Heart failure with preserved ejection fraction Hypertension Hypothyroidism Insomnia Memory loss of unknown cause Prostate cancer Status post radiation in 2020. Right retinal detachment Tremor Surgical History Surgical History History of corneal transplant Family History Family History Father Family history of osteoporosis Family history of cataracts Asthma Family history of chronic obstructive pulmonary disease Malignant neoplasm of prostate Mother Family history of Alzheimer's disease Other Family history of arthritis Family history of malignant neoplasm Social History Social History Social History: Surrogate medical decision maker: Talisha Livingston, . Code status: Full code. Smoking status: Unknown if ever smoked Second hand tobacco smoke exposure: No Alcohol intake: former Drinks per week: 1 Alcohol use details: BEER Substance use: never Substance use type: does not use Living arrangements: with family Additional living arrangements comments: Lives with in [place]. They have a son in [place] and a daughter who lives in the area. 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 Spiritual care concerns: No Meds Home Medications and Allergies Home Medications Medication Instructions Recorded Confirmed Type tamsulosin 0.4 mg capsule 0.4 mg PO DAILY #90 caps 10/18/22 04/12/23 Rx levot
[2023-04-13 09:21] LABS: Prothrombin Time 13.9 Seconds (11.1-14.7)
--- NOTE | 2023-04-13 12:22 | PCDIET ---
Nutrition recommendation: Osmolite 1.5 at 20 ml/hr advance by 10 ml q 4 hours to goal rate of 60 ml/hr. Tube feedings at goal rate providing 1980 kcals/83 gms protein/1006 ml water. Flush 50 ml q 4 hours. Monitoring.
[2023-04-13] MEDS: SALINE LOCK FLUSH 10 ML IV PUSH ×2 (14:00→22:12)
[2023-04-13] MEDS: ceFAZolin 1 GM/NS 50 ML 1 GM/50 ML BAG IVPB (15:04)
[2023-04-13] MEDS: LACTATED RINGERS 1,000 ML 150 ML IV CONT (15:07)
--- NOTE | 2023-04-13 15:40 | PM.IMPN ---
Progress Note: A&P Assessment and Plan (1) Dysphagia: Code(s): R13.10 - Dysphagia, unspecified Status: Acute Assessment and Plan: Dr. Morin has been consulted, PEG tube placement this afternoon. Continue scopolamine patch (2) Recent cerebrovascular accident: Code(s): Z86.73 - Personal history of transient ischemic attack (TIA), and cerebral infarction without residual deficits Status: Acute Assessment and Plan: was at [facility] PT/OT eval ordered (3) Chronic kidney disease: Code(s): N18.9 - Chronic kidney disease, unspecified Status: Chronic Assessment and Plan: creatinine 1.70 eGFR 39 (4) Hypertension: Code(s): I10 - Essential (primary) hypertension Status: Chronic Assessment and Plan: resume meds when appropriate (5) Heart failure with preserved ejection fraction: Code(s): I50.30 - Unspecified diastolic (congestive) heart failure Status: Chronic (6) Hypothyroidism: Code(s): E03.9 - Hypothyroidism, unspecified Status: Chronic Assessment and Plan: resume meds when appropriate (7) Chronic anticoagulation: Code(s): Z79.01 - emt intermediate (current) use of anticoagulants Status: Chronic Assessment and Plan: held for procedure, can resume when appropriate Subjective Date/time seen: 04/13/23 15:40 Interval history: Patient sleeping in no distress at time of exam. He will have a PEG tube placed today by GI as he previously had a stroke and has been using an NG tube. PT/OT will be ordered as he came from [facility]. Care coordination following. Review of Systems Review of Systems: All systems reviewed & are unremarkable except as noted in HPI and below Exam Narrative: General:?chronically ill-appearing male sleeping in bed in no distress. HEENT:?PERRL, EOMI. Tacky mucous membranes with some drooling. Scopolamine patch behind the right ear. Neck:??Supple. Respiratory:?Respirations are nonlabored and lung sounds are clear to auscultation. Cardiovascular:??RRR with S1-S2. Gastrointestinal:??Abdomen is soft, nontender, and nondistended with positive bowel sounds. Skin:??Warm and dry.?Faint abrasion on the forehead. Extremities:??No cyanosis, clubbing, or significant edema. Radial and pedal pulses intact. Neurological:??unable to assess Psychiatric:?unable to assess Objective Data Vital Signs Vital Signs: Vital Signs - 24 hr 04/12/23 20:39 04/12/23 20:00 04/13/23 05:12 Temperature 98.2 F 98 F Pulse Rate 84 85 Respiratory Rate 18 18 Blood Pressure 111/58 L 137/66 Pulse Oximetry 96 96 95 Oxygen Delivery Nasal Cannula Oxygen Flow Rate 2 04/13/23 08:00 04/13/23 15:08 04/13/23 15:05 Temperature 97.8 F 98.8 F Pulse Rate 84 82 Respiratory Rate 20 17 Blood Pressure 151/75 H 148/68 H Pulse Oximetry 90 96 100 Oxygen Delivery Nasal Cannula Room Air Oxygen Flow Rate 2 Intake/Output Intake/Output: Intake & Output 04/10/23 04/11/23 04/12/23 04/13/23 23:59 23:59 23:59 23:59 Intake Total 0 Output Total 300 Balance -300 Meds/Results Medications: Active Medications Generic Name Dose Route Start Last Admin Trade Name Freq PRN Reason Stop Dose Admin Lactated Ringer's 1,000 mls @ 150 mls/hr 04/13/23 15:05 04/13/23 15:07 Lr - Lactated Ringers Iv IV CONT 150 mls/hr .[id number] ISIDORO Administration Sodium Chloride 10 ml 04/13/23 14:00 Saline Lock Flush IV PUSH Q8HR ISIDORO Sodium Chloride 10 ml 04/13/23 07:58 Saline Lock Flush IV PUSH PRN PRN Flush Sodium Chloride 20 ml 04/13/23 07:58 Saline Lock Flush IV PUSH PRN PRN after blood draws Labs Labs: Laboratory Results - last 24 hr 04/13/23 04/13/23 05:41 09:02 WBC 7.6 RBC 3.76 L Hgb 8.9 L Hct 30.8 L MCV 81.9 MCH 23.7 L MCHC 28.9 L RDW 25.5 H Plt Count 247 MPV 9.3 PT 13.9 INR 1.0 Sodium 135 L Potassium
--- NOTE | 2023-04-13 17:04 | ECG_ITS ---
Measurements Intervals [place] Rate: 76 P: 44 RI: 218 QRS: -54 QRSD: 150 T: 209 QT: 418 QTc: 471 Interpretive Statements SINUS RHYTHM WITH FIRST DEGREE AV BLOCK RIGHT BUNDLE BRANCH BLOCK LEFT ANTERIOR FASCICULAR BLOCK LEFT VENTRICULAR HYPERTROPHY AND ST-T CHANGE ST-T WAVE ABNORMALITY IN ANTEROLATERAL LEADS- CONSIDER ISCHEMIA BASELINE ARTIFACT- I, II, III, AVR, AVL, AVF, V2 ABNORMAL ECG COMPARED TO ECG 11/19/2021 07:08:53 [address]M NOW PRESENT [address] (T WAVE) DEVIATION NOW PRESENT Electronically Signed On 04-14-2023 15:27:14 MACHINE PACKAGING TECHNICIAN by Sony Morgan D.O.
--- NOTE | 2023-04-13 17:29 | WPDANESPN ---
Anes - Prog Note Post-Op Date/Time: 04/13/23 17:29 Vital Signs: Last Vital Signs Temp 36.6 C 04/13/23 15:08 Pulse 77 04/13/23 17:23 Resp 17 04/13/23 17:23 BP 130/63 04/13/23 17:23 Pulse Ox 100 04/13/23 17:23 O2 Del Method Room Air 04/13/23 17:23 O2 Flow Rate 2 04/13/23 17:13 Pain Score (VAS): 0 I/O: Intake & Output 04/13/23 04/13/23 04/13/23 07:59 15:59 23:59 Intake Total 0 0 Output Total 300 Balance -300 0 Laboratory Tests 04/13/23 05:41 04/13/23 05:41 04/13/23 04/13/23 05:41 09:02 WBC 7.6 RBC 3.76 L Hgb 8.9 L Hct 30.8 L MCV 81.9 MCH 23.7 L MCHC 28.9 L RDW 25.5 H Plt Count 247 MPV 9.3 PT 13.9 INR 1.0 Sodium 135 L Potassium 4.3 Chloride 103 Carbon Dioxide 25 Anion Gap 7 L BUN 22 H Creatinine 1.70 H Estim Creat Clear Calc 25 Estimated GFR 39 L Glucose 103 Calcium 8.5 Magnesium 2.1 Other Findings: Patient noted to have what looked like ST depression on our 3 lead clinical research monitor during sedation for PEG tube placement. 12 lead EKG ordered in recovery and showed RBBB, LVH and 1st degree AV block which is what his most recent EKG in our system looks like from 2021. The 12 lead monitor did not show the ST depression that our 3 lead clinical research monitor was showing while observing both real time simultaneously which leads me to believe it was just lead placement of the 3 lead and/or the RBBB giving an appearance of ST depression on the 3 lead. Patient asymptomatic throughout.
[2023-04-14 05:05] VITALS: BP 129/67; PULSE 69; RESP 18; TEMP 36.6; O2SAT 95
[2023-04-14 06:01] LABS: Basophils Percent Auto 0.2 % (0.2-1.2); Eosinophils Absolute Auto 0.2 K/mm3 (0-0.3); Hematocrit 32.5 % (42.0-52.0); Immature Granulocyte Absolute 0.01 K/mm3 (0.00-0.031); Immature Granulocyte Percent A 0.2 % (0-0.5); Lymphocytes Absolute Auto 0.71 K/mm3 (0.9-3.2); Lymphocytes Percent Auto 11.9 % (18.3-44.2); Mean Corpuscular HGB Conc 27.7 g/dl (32-36); Mean Corpuscular Hemoglobin 23.6 pg (26-34); Mean Corpuscular Volume 85.3 fl (80-100); Mean Platelet Volume 9.6 fl (7.4-10.4); Monocytes Absolute Auto 0.5 K/mm3 (0.1-0.6); Monocytes Percent Auto 8.7 % (2.6-8.5); Neutrophils Absolute Auto 4.5 K/mm3 (1.3-6.7); Platelet Count Result 227 k/mm3 (150-375); Red Blood Count 3.81 M/mm3 (4.6-6.20); Red Cell Distribution Width 25.6 % (11.5-14.5)
[2023-04-14 06:34] LABS: Acanthocytes 1+ (NORMAL); Anisocytosis 1+ (NORMAL); Hypochromasia 1+ (NORMAL); Platelet Estimate Adequate (Adequate); Poikilocytosis 1+ (NORMAL)
[2023-04-14 06:35] LABS: Ovalocytes 1+ (NORMAL); Schistocytes None Seen (NORMAL)
[2023-04-14 07:02] LABS: Albumin Level 2.6 g/dL (3.5-5.1); Anion Gap 7 mmol/L (8-16); Blood Urea Nitrogen 21 mg/dL (9-20); Calcium 8.7 mg/dL (8.4-10.2); Carbon Dioxide 25 mmol/L (22-30); Chloride 105 mmol/L (98-107); Estimated CRCL calculation 28 ml/min; Estimated Glomerular Filt Rate 45; Glucose 76 mg/dL (65-110); Lipase 82 U/L (23-300); Phosphorus 3.6 mg/dL (2.5-4.5); Potassium 4.6 mmol/L (3.4-5.0); Sodium 137 mmol/L (137-145)
--- NOTE | 2023-04-14 10:30 | PCDIET ---
Physician consult for bolus tube feedings. Tube feeding recommendations: Osmolite 1.5- 300 ml 4 x per day. Flush 50 ml before and after feeding. Tube feeding providing 1800 kcals/75 gms protein/914 ml water. Will continue to monitor every Tuesday and Tuesday.
--- NOTE | 2023-04-14 10:59 | P.PNAN_ITS ---
Anes - Prog Note Post-Op Date/Time: 04/14/23 10:59 Vital Signs: Last Vital Signs Temp 36.6 C 04/14/23 05:05 Pulse 69 04/14/23 05:05 Resp 18 04/14/23 05:05 BP 129/67 04/14/23 05:05 Pulse Ox 95 04/14/23 05:05 O2 Del Method Room Air 04/14/23 08:00 O2 Flow Rate 2 04/13/23 17:13 Pain Score (VAS): unable to assess I/O: Intake & Output 04/13/23 04/14/23 04/14/23 23:59 07:59 15:59 Intake Total 200 0 Balance 200 0 Laboratory Tests 04/14/23 05:31 04/14/23 05:31 04/14/23 05:31 WBC 6.0 RBC 3.81 L Hgb 9.0 L Hct 32.5 L MCV 85.3 MCH 23.6 L MCHC 27.7 L RDW 25.6 H Plt Count 227 MPV 9.6 Immature Gran % (Auto) 0.2 Neut % (Auto) 75.0 H Lymph % (Auto) 11.9 L [place] % (Auto) 8.7 H Eos % (Auto) 4.0 Baso % (Auto) 0.2 Lymph # (Auto) 0.71 L [place] # (Auto) 0.5 Eos # (Auto) 0.2 Baso # (Auto) 0.0 Abs Immat Gran (auto) 0.01 Absolute Neuts (auto) 4.5 Absolute Nucleated RBC 0.0 Nucleated RBC % 0.0 Platelet Estimate Adequate Hypochromasia 1+ Poikilocytosis 1+ Anisocytosis 1+ Ovalocytes 1+ Acanthocytes (Spur) 1+ Schistocytes None seen Sodium 137 Potassium 4.6 Chloride 105 Carbon Dioxide 25 Anion Gap 7 L BUN 21 H Creatinine 1.50 H Estim Creat Clear Calc 28 Estimated GFR 45 L Glucose 76 Calcium 8.7 Phosphorus 3.6 Albumin 2.6 L Lipase 82 Patient Feedback: Patient satisfied with anesthetic care.
--- NOTE | 2023-04-14 11:59 | P.PNIM_ITS ---
Progress Note: A&P Assessment and Plan (1) Dysphagia: Code(s): R13.10 - Dysphagia, unspecified Status: Acute Assessment and Plan: * PEG tube placed yesterday Gastroenterology * Dietitian consult for tube feeding, bolus feeds with water flushes. * If tolerating tube feeds tomorrow, he may be able to go back to [facility] (2) Cerebrovascular accident, old: Code(s): Z86.73 - Personal history of transient ischemic attack (TIA), and cerebral infarction without residual deficits Status: Acute Assessment and Plan: * Recent CVA on 03/22/2023 with left-sided weakness * Patient was currently [facility] [place] [facility] for strength training however patient had dysphagia and came to the on 04/12/2023 for evaluation of the dysphagia and PEG tube placement * Will likely return to rehab possibly tomorrow (3) Chronic kidney disease: Code(s): N18.9 - Chronic kidney disease, unspecified Status: Chronic Assessment and Plan: * BUN 21, creatinine 1.5, EGFR 40 creatinine clearance is * Continue to trend (4) Hypertension: Code(s): I10 - Essential (primary) hypertension Status: Chronic Assessment and Plan: * Blood pressures ranging 120/67 to 136/58 * Will continue home medications (5) Heart failure with preserved ejection fraction: Code(s): I50.30 - Unspecified diastolic (congestive) heart failure Status: Chronic Assessment and Plan: * Continue home medication (6) Hypothyroidism: Code(s): E03.9 - Hypothyroidism, unspecified Status: Chronic Assessment and Plan: * Continue Synthroid (7) Chronic anticoagulation: Code(s): Z79.01 - research laboratory 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 GI was consulted and patient had PEG tube placed yesterday. On examination today patient is alert to voice, unable to assess orientation, and lying in the bed. He is unable to move his left arm your left leg. He has good range of motion in his right upper extremity and was able to move his toes when asked on right side. Patient able to follow simple commands. Labs today shown hemoglobin of 9.0, hematocrit 32.5, BUN 21, creatinine 1.5, magnesium 2.13.6, albumin 2.6 blood sugars ranging 76- 103. Dietitian was consulted for bolus tube feeding. If patient tolerating tube feed, he will likely be discharged tomorrow back to [facility] for rehab. Review of Systems Review of Systems: ROS unobtainable: Yes unobtainable due to mental status Exam Narrative: General: In no acute distress, well nourished Head: atraumatic, no encephalopathy Eyes: EOMI, PERRLA, sclera clear ENT: moist mucous membranes, nasal passages clear Neck: supple, no JVD, no adenopathy, trachea midline Cardiac: Normal S1 and S2. No murmur, gallops or friction rubs, peripheral pulses intact. Respiratory: Lungs clear to auscultation, diminished in the bases no adventitious lung sounds Gastrointestinal: soft, non-distended, non-tender, normoactive bowel sounds. : voiding without difficulty. Extremities: Left-sided paralysis from previous stroke, good range of motion in right upp
--- NOTE | 2023-04-14 11:59 | PM.IMPN ---
Progress Note: A&P Assessment and Plan (1) Dysphagia: Code(s): R13.10 - Dysphagia, unspecified Status: Acute Assessment and Plan: PEG tube placed yesterday Gastroenterology Dietitian consult for tube feeding, bolus feeds with water flushes. If tolerating tube feeds tomorrow, [facility] (2) Cerebrovascular accident, old: Code(s): Z86.73 - Personal history of transient ischemic attack (TIA), and cerebral infarction without residual deficits Status: Acute Assessment and Plan: Recent CVA on 03/22/2023 with left-sided weakness [facility] [place] [facility] for strength training however patient had dysphagia and came to the on 04/12/2023 for evaluation of the dysphagia and PEG tube placement Will likely return to rehab possibly tomorrow (3) Chronic kidney disease: Code(s): N18.9 - Chronic kidney disease, unspecified Status: Chronic Assessment and Plan: BUN 21, creatinine 1.5, EGFR 40 creatinine clearance is Continue to trend (4) Hypertension: Code(s): I10 - Essential (primary) hypertension Status: Chronic Assessment and Plan: Blood pressures ranging 120/67 to 136/58 Will continue home medications (5) Heart failure with preserved ejection fraction: Code(s): I50.30 - Unspecified diastolic (congestive) heart failure Status: Chronic Assessment and Plan: Continue home medication (6) Hypothyroidism: Code(s): E03.9 - Hypothyroidism, unspecified Status: Chronic Assessment and Plan: Continue Synthroid (7) Chronic anticoagulation: Code(s): Z79.01 - 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 GI was consulted and patient had PEG tube placed yesterday. On examination today patient is alert to voice, unable to assess orientation, and lying in the bed. He is unable to move his left arm your left leg. He has good range of motion in his right upper extremity and was able to move his toes when asked on right side. Patient able to follow simple commands. Labs today shown hemoglobin of 9.0, hematocrit 32.5, BUN 21, creatinine 1.5, magnesium 2.13.6, albumin 2.6 blood sugars ranging 76-103. Dietitian was consulted for bolus tube feeding. If patient tolerating tube feed, he will likely be discharged tomorrow back to [facility] for rehab. Review of Systems Review of Systems: ROS unobtainable: Yes unobtainable due to mental status Exam Narrative: General: In no acute distress, well nourished Head: atraumatic, no encephalopathy Eyes: EOMI, PERRLA, sclera clear ENT: moist mucous membranes, nasal passages clear Neck: supple, no JVD, no adenopathy, trachea midline Cardiac: Normal S1 and S2. No murmur, gallops or friction rubs, peripheral pulses intact. Respiratory: Lungs clear to auscultation, diminished in the bases no adventitious lung sounds Gastrointestinal: soft, non-distended, non-tender, normoactive bowel sounds. : voiding without difficulty. 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 No wounds or lesions. Neuro: Alert and oriented x1, cranial nerves intact, no neuro deficits. Aphasia, able to follow simple commands Psych: normal mood, normal affect, interactive, does not make eye contact Objective Data Vital Signs Vital Signs: Vital Signs - 24 hr 04/13/23 15:08 04/13/23 15:05 01
[2023-04-14] MEDS: hydrALAZINE HCL 25 MG TABLET FEED TUBE ×2 (13:35→21:30)
[2023-04-14] MEDS: ENOXAPARIN 40 MG/0.4 ML SYRINGE SUB-Q (13:35)
[2023-04-14] MEDS: VITAMIN B COMPLEX CAPSULE 1 CAP FEED TUBE (13:35)
[2023-04-14] MEDS: ISOSORBIDE DINITRATE 10 MG TABLET FEED TUBE ×2 (13:35→21:30)
[2023-04-14] MEDS: ATORVASTATIN 10 MG TABLET FEED TUBE (13:35)
[2023-04-14] MEDS: SALINE LOCK FLUSH 10 ML IV PUSH ×2 (13:36→21:38)
[2023-04-14 13:38] VITALS: PULSE 72
[2023-04-14] MEDS: METOPROLOL TARTRATE 12.5 MG TABLET FEED TUBE ×2 (13:38→21:30)
[2023-04-14 14:00] VITALS: BP 117/61; PULSE 77; RESP 15; TEMP 37; O2SAT 91
[2023-04-14 15:48] VITALS: BMI 11.0
[2023-04-14 20:40] VITALS: BP 129/63; PULSE 74; RESP 18; TEMP 36.6; O2SAT 93
[2023-04-14 21:30] VITALS: PULSE 80
[2023-04-15 04:40] VITALS: BP 125/52; PULSE 76; RESP 18; TEMP 36.6; O2SAT 96
[2023-04-15] MEDS: SALINE LOCK FLUSH 10 ML IV PUSH ×3 (05:34→21:19)
[2023-04-15] MEDS: LEVOTHYROXINE SODIUM 50 MCG TABLET FEED TUBE (05:34)
[2023-04-15] MEDS: ISOSORBIDE DINITRATE 10 MG TABLET FEED TUBE ×3 (05:34→21:19)
[2023-04-15] MEDS: hydrALAZINE HCL 25 MG TABLET FEED TUBE ×3 (05:34→21:19)
[2023-04-15] MEDS: ATORVASTATIN 10 MG TABLET FEED TUBE (09:12)
[2023-04-15] MEDS: VITAMIN B COMPLEX CAPSULE 1 CAP FEED TUBE (09:12)
[2023-04-15] MEDS: ENOXAPARIN 40 MG/0.4 ML SYRINGE SUB-Q (09:23)
[2023-04-15 09:24] VITALS: PULSE 78
[2023-04-15] MEDS: METOPROLOL TARTRATE 12.5 MG TABLET FEED TUBE ×2 (09:24→21:19)
--- NOTE | 2023-04-15 10:32 | PCNFU ---
Nutrition Follow-Up Complete: Swallowing Difficulties as related to Dysphagia as evidenced by NPO/G tube placement. Goal: Meet estimated nutritional needs. Patient is progressing towards goal. We will continue current goal. Pt current nutrition is Osmolite 1.5. Last recorded weight is 72.4 kg, no new weight to report. Bowel Motility:+Bm reported 04/14 Labs Reviewed:GFR 45, BUN 21, Cr 1.5,Hct 32.5,Hgb 9.0 Meds Noted:Lopressor, Lipitor, Vit B complex. Skin: WNL Additional Notes: Patient had PEG tube placed. Tolerating bolus feeding per nursing. Patient receiving 300 ml bolus 4 x daily of Osmolite 1.5. Tube feeding providing 1800 kcals/75 gms protein/914 ml water (99% kcal needs at 25 kcals/kg and 100% protein needs at 1.0-1.2 gm/kg). Flush 100 ml 4 x per day. Agree with diet orders. Will monitor weight, labs, skin, tube feeding tolerance, meds every Tuesday and Tuesday.
[2023-04-15 11:39] VITALS: BMI 11.0
[2023-04-15 14:00] VITALS: BP 104/50; PULSE 78; RESP 18; TEMP 37.1; O2SAT 92
--- NOTE | 2023-04-15 14:09 | PM.IMPN ---
Progress Note: A&P Assessment and Plan (1) Dysphagia: Code(s): R13.10 - Dysphagia, unspecified Status: Acute Assessment and Plan: PEG tube placed by GI, no complications Dietitian consult for tube feeding, bolus feeds with water flushes. 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 [facility] [place] [facility] for strength training however patient had dysphagia and came to the on 04/12/2023 for evaluation of the dysphagia and PEG tube placement [facility] now unwilling to take patient back due to lack of progress, awaiting SNF placement (3) Chronic kidney disease: Code(s): N18.9 - Chronic kidney disease, unspecified Status: Chronic Assessment and Plan: BUN 21, creatinine 1.5, EGFR 40 creatinine clearance is 28 Continue to trend (4) Hypertension: Code(s): I10 - Essential (primary) hypertension Status: Chronic Assessment and Plan: Blood pressures ranging 120/67 to 136/58 Will continue home medications (5) Heart failure with preserved ejection fraction: Code(s): I50.30 - Unspecified diastolic (congestive) heart failure Status: Chronic Assessment and Plan: Continue home medication (6) Hypothyroidism: Code(s): E03.9 - Hypothyroidism, unspecified Status: Chronic Assessment and Plan: Continue Synthroid (7) Chronic anticoagulation: Code(s): Z79.01 - nursing home (current) use of anticoagulants Status: Chronic Assessment and Plan: Heparin on hold Continue with Lovenox 40 mg daily Subjective Date/time seen: 04/15/23 14:09 Interval history: Patient doing well this morning, no complaints or distress. PEG tube in place, feedings with no issue. BS present. [facility] no longer willing to take patient back due to lack of progress. Care coordination working to find SNF placement. Will d/c when placed. Review of Systems Review of Systems: All systems reviewed & are unremarkable except as noted in HPI and below Exam Narrative: General: In no acute distress, well nourished Head: atraumatic, no encephalopathy Eyes: EOMI, PERRLA, sclera clear ENT: moist mucous membranes, nasal passages clear Neck: supple, no JVD, no adenopathy, trachea midline Cardiac: Normal S1 and S2. No murmur, gallops or friction rubs, peripheral pulses intact. Respiratory: Lungs clear to auscultation, diminished in the bases no adventitious lung sounds Gastrointestinal: soft, non-distended, non-tender, normoactive bowel sounds. : voiding without difficulty. 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 No wounds or lesions. Neuro: Alert and oriented x1, cranial nerves intact, no neuro deficits. Aphasia, able to follow simple commands Psych: normal mood, normal affect, interactive, does not make eye contact Objective Data Vital Signs Vital Signs: Vital Signs - 24 hr 04/14/23 20:40 04/14/23 21:30 04/15/23 04:40 Temperature 97.9 F 98 F Pulse Rate 74 80 76 Respiratory Rate 18 18 Blood Pressure 129/63 125/52 L Pulse Oximetry 93 96 Oxygen Delivery 04/15/23 09:24 04/15/23 08:00 04/15/23 11:39 Temperature Pulse Rate 78 Respiratory Rate Blood Pressure Pulse Oximetry Oxygen Delivery Room Air Room Air Intake/Output Intake/Output: Intake & Output 04/12/23 04/13/23 04/14/23 04/15/23 23:59 23:59 23:59 23:59 Intake Total 200 0 0 Output Total 300 150 Balance -100 0 -150 Meds/Results Medications: Active Medications Generic Name Dose Route Start Last Admin Trade N
[2023-04-15 21:19] VITALS: PULSE 88
[2023-04-15 22:00] VITALS: BP 156/68; PULSE 85; RESP 16; TEMP 36.2; O2SAT 94
[2023-04-16 06:00] VITALS: BP 115/61; PULSE 84; RESP 16; TEMP 37.1; O2SAT 94
[2023-04-16] MEDS: LEVOTHYROXINE SODIUM 50 MCG TABLET FEED TUBE (06:27)
[2023-04-16] MEDS: ISOSORBIDE DINITRATE 10 MG TABLET FEED TUBE ×3 (06:27→21:03)
[2023-04-16] MEDS: hydrALAZINE HCL 25 MG TABLET FEED TUBE ×3 (06:28→21:03)
[2023-04-16] MEDS: SALINE LOCK FLUSH 10 ML IV PUSH ×3 (06:28→22:50)
[2023-04-16] MEDS: ATORVASTATIN 10 MG TABLET FEED TUBE (08:45)
[2023-04-16] MEDS: VITAMIN B COMPLEX CAPSULE 1 CAP FEED TUBE (08:45)
[2023-04-16 08:46] VITALS: PULSE 66
[2023-04-16] MEDS: ENOXAPARIN 40 MG/0.4 ML SYRINGE SUB-Q (08:46)
[2023-04-16] MEDS: METOPROLOL TARTRATE 12.5 MG TABLET FEED TUBE ×2 (08:46→21:03)
--- NOTE | 2023-04-16 10:09 | PCOTNOTE ---
Attempted to see pt for Occupational Therapy treatment. Therapist attempted both sternal rubbing and verbal cues loudly to arouse pt. Pt would mumble phrase and continue snoring but would not open eyes to acknowledge therapist. Will attempt at another time per poc duration/frequency.
[2023-04-16 12:15] LABS: Hematocrit 32.4 % (42.0-52.0); Hemoglobin 9.2 g/dL (14.0-18.0); Mean Corpuscular HGB Conc 28.4 g/dl (32-36); Mean Corpuscular Volume 84.4 fl (80-100); Platelet Count Result 198 k/mm3 (150-375); Red Blood Count 3.84 M/mm3 (4.6-6.20); Red Cell Distribution Width 25.9 % (11.5-14.5)
[2023-04-16 12:25] LABS: Anion Gap 4 mmol/L (8-16); Blood Urea Nitrogen 33 mg/dL (9-20); Calcium 8.7 mg/dL (8.4-10.2); Carbon Dioxide 32 mmol/L (22-30); Chloride 102 mmol/L (98-107); Estimated CRCL calculation 25 ml/min; Estimated Glomerular Filt Rate 39; Glucose 174 mg/dL (65-110); Potassium 4.6 mmol/L (3.4-5.0); Sodium 138 mmol/L (137-145)
[2023-04-16 15:06] VITALS: BP 117/56; PULSE 75; RESP 17; TEMP 36.3; O2SAT 95
--- NOTE | 2023-04-16 15:28 | PM.IMPN ---
Progress Note: A&P Assessment and Plan (1) Dysphagia: Code(s): R13.10 - Dysphagia, unspecified Status: Acute Assessment and Plan: PEG tube placed by GI, no complications Dietitian consult for tube feeding, bolus feeds with water flushes. 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 Patient was [facility] for strength training however patient had dysphagia and came to the on 04/12/2023 for evaluation of the dysphagia and PEG tube placement [facility] now unwilling to take patient back due to lack of progress, awaiting SNF placement (3) Chronic kidney disease: Code(s): N18.9 - Chronic kidney disease, unspecified Status: Chronic Assessment and Plan: BUN 33, creatinine 1.7, EGFR 39 creatinine clearance is 25 Continue to trend (4) Hypertension: Code(s): I10 - Essential (primary) hypertension Status: Chronic Assessment and Plan: Blood pressures stable Will continue home medications (5) Heart failure with preserved ejection fraction: Code(s): I50.30 - Unspecified diastolic (congestive) heart failure Status: Chronic Assessment and Plan: Continue home medication (6) Hypothyroidism: Code(s): E03.9 - Hypothyroidism, unspecified Status: Chronic Assessment and Plan: Continue Synthroid (7) Chronic anticoagulation: Code(s): Z79.01 - longterm (current) use of anticoagulants Status: Chronic Assessment and Plan: Heparin on hold Continue with Lovenox 40 mg daily Subjective Date/time seen: 04/16/23 15:28 Interval history: Patient contnues to do well, no complaints or distress. PEG tube in place, feedings with no issue. BS present. Care coordination working to find SNF placement. Will d/c when placed. Review of Systems Review of Systems: All systems reviewed & are unremarkable except as noted in HPI and below Exam Narrative: General: In no acute distress, well nourished Head: atraumatic, no encephalopathy Eyes: EOMI, PERRLA, sclera clear ENT: moist mucous membranes, nasal passages clear Neck: supple, no JVD, no adenopathy, trachea midline Cardiac: Normal S1 and S2. No murmur, gallops or friction rubs, peripheral pulses intact. Respiratory: Lungs clear to auscultation, diminished in the bases no adventitious lung sounds Gastrointestinal: soft, non-distended, non-tender, normoactive bowel sounds. : voiding without difficulty. 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 No wounds or lesions. Neuro: Alert and oriented x1, cranial nerves intact, no neuro deficits. Aphasia, able to follow simple commands Psych: normal mood, normal affect, interactive, does not make eye contact Objective Data Vital Signs Vital Signs: Vital Signs - 24 hr 04/15/23 21:19 04/15/23 22:00 04/16/23 06:00 Temperature 97.1 F L 98.8 F Pulse Rate 88 85 84 Respiratory Rate 16 16 Blood Pressure 156/68 H 115/61 Pulse Oximetry 94 94 Oxygen Delivery 04/16/23 08:46 04/16/23 08:00 Temperature Pulse Rate 66 Respiratory Rate Blood Pressure Pulse Oximetry Oxygen Delivery Room Air Intake/Output Intake/Output: Intake & Output 04/13/23 04/14/23 04/15/23 04/16/23 23:59 23:59 23:59 23:59 Intake Total 200 0 0 Output Total 191 829 [id number] Balance -100 0 -550 -1000 Meds/Results Medications: Active Medications Generic Name Dose Route Start Last Admin Trade Name Freq PRN Reason Stop Dose Admin Acetaminophen 650 mg 04/14/23 12:16 Acetaminophen 650 Mg Supposit
[2023-04-16 20:43] VITALS: BP 128/58; PULSE 82; RESP 16; TEMP 37.1; O2SAT 94
[2023-04-16 21:03] VITALS: PULSE 80
[2023-04-17 05:28] VITALS: BP 132/63; PULSE 84; RESP 16; TEMP 37.5; O2SAT 93
[2023-04-17] MEDS: SALINE LOCK FLUSH 10 ML IV PUSH ×3 (05:39→21:38)
[2023-04-17] MEDS: LEVOTHYROXINE SODIUM 50 MCG TABLET FEED TUBE (05:39)
[2023-04-17] MEDS: hydrALAZINE HCL 25 MG TABLET FEED TUBE ×3 (05:39→21:37)
[2023-04-17] MEDS: ISOSORBIDE DINITRATE 10 MG TABLET FEED TUBE ×3 (05:39→21:37)
[2023-04-17 06:12] LABS: Hemoglobin 9.8 g/dL (14.0-18.0); Mean Corpuscular HGB Conc 28.8 g/dl (32-36); Mean Corpuscular Hemoglobin 23.8 pg (26-34); Mean Corpuscular Volume 82.7 fl (80-100); Mean Platelet Volume 9.6 fl (7.4-10.4); Platelet Count Result 220 k/mm3 (150-375); Red Blood Count 4.11 M/mm3 (4.6-6.20); Red Cell Distribution Width 26.2 % (11.5-14.5); White Blood Count 7.9 K/mm3 (4.5-10.0)
[2023-04-17 06:23] LABS: Anion Gap 5 mmol/L (8-16); Blood Urea Nitrogen 34 mg/dL (9-20); Calcium 8.7 mg/dL (8.4-10.2); Carbon Dioxide 30 mmol/L (22-30); Chloride 104 mmol/L (98-107); Estimated CRCL calculation 26 ml/min; Estimated Glomerular Filt Rate 41; Glucose 118 mg/dL (65-110); Potassium 5.1 mmol/L (3.4-5.0); Sodium 139 mmol/L (137-145)
[2023-04-17 08:00] VITALS: O2SAT 92
[2023-04-17] MEDS: ATORVASTATIN 10 MG TABLET FEED TUBE (08:03)
[2023-04-17] MEDS: ENOXAPARIN 40 MG/0.4 ML SYRINGE SUB-Q (08:04)
[2023-04-17] MEDS: VITAMIN B COMPLEX CAPSULE 1 CAP FEED TUBE (08:04)
[2023-04-17] MEDS: EMPAGLIFLOZIN 10 MG TABLET BY MOUTH (08:04)
[2023-04-17 08:05] VITALS: PULSE 87
[2023-04-17] MEDS: METOPROLOL TARTRATE 12.5 MG TABLET FEED TUBE ×2 (08:05→21:37)
[2023-04-17 09:49] VITALS: BMI 11.0
[2023-04-17 13:50] VITALS: BP 117/82; PULSE 99; RESP 18; TEMP 37; O2SAT 95
--- NOTE | 2023-04-17 14:08 | PM.IMPN ---
Progress Note: A&P Assessment and Plan (1) Dysphagia: Code(s): R13.10 - Dysphagia, unspecified Status: Acute Assessment and Plan: PEG tube placed by GI, no complications Dietitian consult for tube feeding, bolus feeds with water flushes. 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 [facility] for strength training however patient had dysphagia and came to the on 04/12/2023 for evaluation of the dysphagia and PEG tube placement [facility] now unwilling to take patient back due to lack of progress, awaiting SNF placement (3) Chronic kidney disease: Code(s): N18.9 - Chronic kidney disease, unspecified Status: Chronic Assessment and Plan: BUN 34, creatinine 1.6, EGFR 41 creatinine clearance is 26 Continue to trend (4) Hypertension: Code(s): I10 - Essential (primary) hypertension Status: Chronic Assessment and Plan: Blood pressures stable Will continue home medications (5) Heart failure with preserved ejection fraction: Code(s): I50.30 - Unspecified diastolic (congestive) heart failure Status: Chronic Assessment and Plan: Continue home medication (6) Hypothyroidism: Code(s): E03.9 - Hypothyroidism, unspecified Status: Chronic Assessment and Plan: Continue Synthroid (7) Chronic anticoagulation: Code(s): Z79.01 - detention (current) use of anticoagulants Status: Chronic Assessment and Plan: Heparin on hold Continue with Lovenox 40 mg daily Subjective Date/time seen: 04/17/23 14:08 Interval history: Patient continues to do well, no complaints or distress. PEG tube in place, feedings with no issue. BS present. Care coordination working to find SNF placement. Will d/c when bed available, hopefully tomorrow. Review of Systems Review of Systems: All systems reviewed & are unremarkable except as noted in HPI and below Exam Narrative: General: In no acute distress, well nourished Head: atraumatic, no encephalopathy Eyes: EOMI, PERRLA ENT: moist mucous membranes, nasal passages clear Neck: supple Cardiac: RRR, Normal S1 and S2. Peripheral pulses intact. Respiratory: Lungs clear to auscultation, diminished in the bases, no adventitious lung sounds Gastrointestinal: soft, non-distended, non-tender, normoactive bowel sounds. : voiding without difficulty. 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 No wounds or lesions. Neuro: Alert and oriented, cranial nerves intact, no neuro deficits. Psych: normal mood, normal affect, interactive Objective Data Vital Signs Vital Signs: Vital Signs - 24 hr 04/16/23 15:06 04/16/23 20:43 04/16/23 21:03 Temperature 97.3 F L 98.8 F Pulse Rate 75 82 80 Respiratory Rate 17 16 Blood Pressure 117/56 L 128/58 L Pulse Oximetry 95 94 Oxygen Delivery 04/17/23 05:28 04/17/23 08:05 04/17/23 08:00 Temperature 99.5 F Pulse Rate 84 87 Respiratory Rate 16 Blood Pressure 132/63 Pulse Oximetry 93 92 Oxygen Delivery Room Air Intake/Output Intake/Output: Intake & Output 04/14/23 04/15/23 04/16/23 04/17/23 23:59 23:59 23:59 23:59 Intake Total 0 0 Output Total 550 1300 300 Balance 0 -550 -1300 -300 Meds/Results Medications: Active Medications Generic Name Dose Route Start Last Admin Trade Name Freq PRN Reason Stop Dose Admin Acetaminophen 650 mg 04/14/23 12:16 Acetaminophen 650 Mg Suppository RECTAL Q6H PRN Fever Or Pain 1-3 Atorvastatin Calcium 10 mg 04/14/23
[2023-04-17 21:22] VITALS: BP 146/76; PULSE 89; RESP 18; TEMP 37; O2SAT 94
[2023-04-17 21:37] VITALS: PULSE 88
[2023-04-18] MEDS: ISOSORBIDE DINITRATE 10 MG TABLET FEED TUBE ×3 (05:33→21:28)
[2023-04-18] MEDS: LEVOTHYROXINE SODIUM 50 MCG TABLET FEED TUBE (05:33)
[2023-04-18] MEDS: hydrALAZINE HCL 25 MG TABLET FEED TUBE ×3 (05:33→21:29)
[2023-04-18] MEDS: SALINE LOCK FLUSH 10 ML IV PUSH ×3 (05:33→21:29)
[2023-04-18 05:46] VITALS: BP 137/71; PULSE 92; RESP 20; TEMP 37.1; O2SAT 92
[2023-04-18 06:04] LABS: Hematocrit 33.6 % (42.0-52.0); Hemoglobin 9.7 g/dL (14.0-18.0); Mean Corpuscular HGB Conc 28.9 g/dl (32-36); Mean Corpuscular Hemoglobin 24.1 pg (26-34); Mean Corpuscular Volume 83.6 fl (80-100); Mean Platelet Volume 9.5 fl (7.4-10.4); Platelet Count Result 223 k/mm3 (150-375); Red Blood Count 4.02 M/mm3 (4.6-6.20); Red Cell Distribution Width 26.3 % (11.5-14.5); White Blood Count 9.7 K/mm3 (4.5-10.0)
[2023-04-18 06:05] LABS: Anion Gap 6 mmol/L (8-16); Blood Urea Nitrogen 40 mg/dL (9-20); Carbon Dioxide 29 mmol/L (22-30); Chloride 102 mmol/L (98-107); Estimated CRCL calculation 25 ml/min; Estimated Glomerular Filt Rate 39; Glucose 133 mg/dL (65-110); Potassium 5.2 mmol/L (3.4-5.0); Sodium 137 mmol/L (137-145)
[2023-04-18 08:27] LABS: Glucose Point of Care 120 mg/dl (65-105)
[2023-04-18 10:14] VITALS: PULSE 92
[2023-04-18] MEDS: ATORVASTATIN 10 MG TABLET FEED TUBE (10:14)
[2023-04-18] MEDS: EMPAGLIFLOZIN 10 MG TABLET BY MOUTH (10:14)
[2023-04-18] MEDS: METOPROLOL TARTRATE 12.5 MG TABLET FEED TUBE ×2 (10:14→21:29)
[2023-04-18] MEDS: VITAMIN B COMPLEX CAPSULE 1 CAP FEED TUBE (10:14)
[2023-04-18] MEDS: ENOXAPARIN 40 MG/0.4 ML SYRINGE SUB-Q (10:15)
[2023-04-18] MEDS: CALCIUM GLUC 1,000 MG/NS 50 ML 1,000 MG/50 ML BAG 100 MG IVPB (10:15)
[2023-04-18 14:00] VITALS: BP 117/55; PULSE 86; RESP 16; TEMP 36.6; O2SAT 94
[2023-04-18 14:25] VITALS: BMI 11.0
--- NOTE | 2023-04-18 15:16 | PM.IMPN ---
Progress Note: A&P Assessment and Plan (1) Dysphagia: Code(s): R13.10 - Dysphagia, unspecified Status: Acute Assessment and Plan: PEG tube placed by GI, no complications Dietitian consult for tube feeding, bolus feeds with water flushes. 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 Patient was [facility] for strength training however patient had dysphagia and came to the on 04/12/2023 for evaluation of the dysphagia and PEG tube placement awaiting SNF placement at [place], plan for s/c when bed available (3) Chronic kidney disease: Code(s): N18.9 - Chronic kidney disease, unspecified Status: Chronic Assessment and Plan: BUN 40, creatinine 1.7, EGFR 39 creatinine clearance is 25 Continue to trend mild hyperkalemia today, given calcium IV and will recheck this afternoon (4) Hypertension: Code(s): I10 - Essential (primary) hypertension Status: Chronic Assessment and Plan: Blood pressures stable Will continue home medications (5) Heart failure with preserved ejection fraction: Code(s): I50.30 - Unspecified diastolic (congestive) heart failure Status: Chronic Assessment and Plan: Continue home medication (6) Hypothyroidism: Code(s): E03.9 - Hypothyroidism, unspecified Status: Chronic Assessment and Plan: Continue Synthroid (7) Chronic anticoagulation: Code(s): 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 PEG tube in place, feedings with no issue. BS present. Mild hyperkalemia present today, given small dose of calcium gluconate IV. Will recheck timed potassium. Will d/c when bed available, hopefully tomorrow. Review of Systems Review of Systems: All systems reviewed & are unremarkable except as noted in HPI and below Exam Narrative: General: In no acute distress, well nourished Head: atraumatic, no encephalopathy Eyes: EOMI, PERRLA ENT: moist mucous membranes, nasal passages clear Neck: supple Cardiac: RRR, Normal S1 and S2. Peripheral pulses intact. Respiratory: Lungs clear to auscultation, diminished in the bases, no adventitious lung sounds Gastrointestinal: soft, non-distended, non-tender, normoactive bowel sounds. : voiding without difficulty. 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 No wounds or lesions. Neuro: Alert and oriented, cranial nerves intact, no neuro deficits. Psych: normal mood, normal affect, interactive Objective Data Vital Signs Vital Signs: Vital Signs - 24 hr 04/17/23 21:22 04/17/23 21:37 04/18/23 05:46 Temperature 98.6 F 98.8 F Pulse Rate 89 88 92 Respiratory Rate 18 20 Blood Pressure 146/76 H 137/71 Pulse Oximetry 94 92 04/18/23 10:14 04/18/23 14:00 Temperature 97.8 F Pulse Rate 92 86 Respiratory Rate 16 Blood Pressure 117/55 L Pulse Oximetry 94 Intake/Output Intake/Output: Intake & Output 04/15/23 04/16/23 04/17/23 04/18/23 23:59 23:59 23:59 23:59 Intake Total 0 50 Output Total 550 1300 600 275 Balance -550 -1300 -600 -225 Meds/Results Medications: Active Medications Generic Name Dose Route Start Last Admin Trade Name Freq PRN Reason Stop Dose Admin Acetaminophen 650 mg 04/14/23 12:16 Acetaminophen 650 Mg Suppository RECTAL Q6H PRN Fever Or P
[2023-04-18 15:19] LABS: Potassium 5.1 mmol/L (3.4-5.0)
[2023-04-18 21:29] VITALS: PULSE 60
[2023-04-18 22:00] VITALS: BP 132/62; PULSE 84; RESP 16; TEMP 36.7; O2SAT 94
[2023-04-19 06:00] VITALS: BP 142/74; PULSE 97; RESP 18; TEMP 36.6; O2SAT 95
[2023-04-19] MEDS: LEVOTHYROXINE SODIUM 50 MCG TABLET FEED TUBE (06:04)
[2023-04-19] MEDS: ISOSORBIDE DINITRATE 10 MG TABLET FEED TUBE ×3 (06:04→21:16)
[2023-04-19] MEDS: hydrALAZINE HCL 25 MG TABLET FEED TUBE ×3 (06:04→21:16)
[2023-04-19] MEDS: SALINE LOCK FLUSH 10 ML IV PUSH ×3 (06:05→21:16)
[2023-04-19 06:23] LABS: Anion Gap 5 mmol/L (8-16); Blood Urea Nitrogen 42 mg/dL (9-20); Carbon Dioxide 30 mmol/L (22-30); Chloride 104 mmol/L (98-107); Estimated CRCL calculation 24 ml/min; Estimated Glomerular Filt Rate 36; Glucose 122 mg/dL (65-110); Potassium 5.4 mmol/L (3.4-5.0); Sodium 139 mmol/L (137-145)
[2023-04-19 06:30] LABS: Hematocrit 34.1 % (42.0-52.0); Hemoglobin 9.5 g/dL (14.0-18.0); Mean Corpuscular HGB Conc 27.9 g/dl (32-36); Mean Corpuscular Hemoglobin 23.6 pg (26-34); Mean Corpuscular Volume 84.8 fl (80-100); Mean Platelet Volume 9.9 fl (7.4-10.4); Platelet Count Result 232 k/mm3 (150-375); Red Blood Count 4.02 M/mm3 (4.6-6.20); Red Cell Distribution Width 26.3 % (11.5-14.5); White Blood Count 9.5 K/mm3 (4.5-10.0)
[2023-04-19] MEDS: CALCIUM GLUC 1,000 MG/NS 50 ML 1,000 MG/50 ML BAG 100 MG IVPB (08:24)
[2023-04-19 10:36] VITALS: PULSE 91
[2023-04-19] MEDS: METOPROLOL TARTRATE 12.5 MG TABLET FEED TUBE ×2 (10:36→21:16)
[2023-04-19] MEDS: ATORVASTATIN 10 MG TABLET FEED TUBE (10:36)
[2023-04-19] MEDS: VITAMIN B COMPLEX CAPSULE 1 CAP FEED TUBE (10:36)
[2023-04-19] MEDS: EMPAGLIFLOZIN 10 MG TABLET BY MOUTH (10:37)
--- NOTE | 2023-04-19 10:43 | PCNFU ---
Nutrition Follow-Up Complete: Swallowing Difficulties as related to Dysphagia as evidenced by NPO/G tube placement. Goal: Meet estimated nutritional needs. Patient is meeting goal. No new goal. Pt current nutrition is Osmolite 1.5 300 ml 4 x per day. Last recorded weight is 72.4 kg, up from 70 kg on admit Bowel Motility:+BM reported 04/19 Labs Reviewed: Glu 122,Cr 1.8,BUN 42, GFR 26, K 5.4 Meds Noted:Jardiance, Vit B , Lopressor. Skin:WNL Additional Notes: Patient remains on a Bolus feedings of Osmolite 1.5 300 ml 4 x per day. Tube feedings providing 1800 ml/75 gms protein/914 ml water. Flush 100 ml q 4 hours. Agree with diet orders. Will monitor weight, labs, skin, tube feeding tolerance, meds every Tuesday and Tuesday.
--- NOTE | 2023-04-19 13:48 | PM.DS ---
DS: Admitting Diagnosis Discharge Date 04/19/23 Admitting Diagnosis dysphagia DS: Discharge Diagnosis Discharge Diagnosis (1) Dysphagia: Code(s): R13.10 - Dysphagia, unspecified Status: Acute Assessment and Plan: PEG tube placed by GI, no complications Dietitian consult for tube feeding, bolus feeds with water flushes. (2) Cerebrovascular accident, old: Code(s): Z86.73 - Personal history of transient ischemic attack (TIA), and cerebral infarction without residual deficits Status: Acute Assessment and Plan: Recent CVA on 03/22/2023 with left-sided weakness [facility] however patient had dysphagia and came to the on 04/12/2023 for evaluation of the dysphagia and PEG tube placement d/c to SNF (3) Chronic kidney disease: Code(s): N18.9 - Chronic kidney disease, unspecified Status: Chronic Assessment and Plan: BUN 42, creatinine 1.8, EGFR 36 creatinine clearance is 24 Continue to trend mild hyperkalemia today, given calcium IV and will recheck this afternoon (4) Hypertension: Code(s): I10 - Essential (primary) hypertension Status: Chronic Assessment and Plan: Blood pressures stable continue home medications (5) Heart failure with preserved ejection fraction: Code(s): I50.30 - Unspecified diastolic (congestive) heart failure Status: Chronic Assessment and Plan: Continue home medication (6) Hypothyroidism: Code(s): E03.9 - Hypothyroidism, unspecified Status: Chronic Assessment and Plan: Continue Synthroid (7) Chronic anticoagulation: Code(s): 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 He failed a swallow study on 04/06/2023 and an NG tube was placed for supplemental nutrition. GI was consulted and Dr. Morin placed PEG tube with no complications. Dietary evaluated for recommendations for feeding and will continue at d/c. Patient continues to do well, no complaints or distress. PEG tube in place, feedings with no issue. BS present. Mild hyperkalemia present, given small dose of calcium gluconate IV. Will recheck timed potassium. Will d/c today to [place]. Status at Discharge Functional status at discharge: wheelchair bound Overall status at discharge: patient is back to baseline Time Spent with Patient Time attestation: Total time spent providing and/or coordinating discharge services: Exam Narrative: General: In no acute distress, well nourished Head: atraumatic, no encephalopathy Eyes: EOMI, PERRLA ENT: moist mucous membranes, nasal passages clear Neck: supple Cardiac: RRR, Normal S1 and S2. Peripheral pulses intact. Respiratory: Lungs clear to auscultation, diminished in the bases, no adventitious lung sounds Gastrointestinal: soft, non-distended, non-tender, normoactive bowel sounds. : voiding without difficulty. 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 No wounds or lesions. Neuro: Alert and oriented, cranial nerves intact, no neuro deficits. Psych: normal mood, normal affect, interactive DS: Data Data Completed and Pending Labs on day of discharge: Labs from last 24 hours 04/19/23 04/18/23 05:35 15:07 WBC 9.5 RBC 4.02 L Hgb 9.5 L Hct 34.1 L MCV 84.8 MCH 23.6 L MCHC 27.9 L RDW 26.3 H Plt
[2023-04-19 14:00] VITALS: BP 152/78; PULSE 92; RESP 18; TEMP 36.9; O2SAT 97
[2023-04-19 15:19] LABS: Potassium 5.6 mmol/L (3.4-5.0)
[2023-04-19] MEDS: SODIUM ZIRCONIUM CYCLOSILICATE 10 GM POWD.PACK PO (17:10)
[2023-04-19 21:07] VITALS: BP 148/58; PULSE 94; RESP 21; TEMP 36.7; O2SAT 100
[2023-04-19 21:16] VITALS: PULSE 80
[2023-04-20] MEDS: LEVOTHYROXINE SODIUM 50 MCG TABLET FEED TUBE (05:31)
[2023-04-20] MEDS: SALINE LOCK FLUSH 10 ML IV PUSH ×2 (05:31→14:57)
[2023-04-20] MEDS: hydrALAZINE HCL 25 MG TABLET FEED TUBE ×2 (05:31→14:57)
[2023-04-20] MEDS: ISOSORBIDE DINITRATE 10 MG TABLET FEED TUBE ×2 (05:31→14:57)
[2023-04-20 05:51] LABS: Hematocrit 33.9 % (42.0-52.0); Hemoglobin 9.6 g/dL (14.0-18.0); Mean Corpuscular HGB Conc 28.3 g/dl (32-36); Mean Corpuscular Hemoglobin 24.1 pg (26-34); Mean Platelet Volume 9.8 fl (7.4-10.4); Platelet Count Result 239 k/mm3 (150-375); Red Blood Count 3.99 M/mm3 (4.6-6.20); Red Cell Distribution Width 25.9 % (11.5-14.5)
[2023-04-20 06:00] VITALS: BP 152/67; PULSE 77; RESP 18; TEMP 36.3; O2SAT 96
[2023-04-20 06:16] LABS: Anion Gap 5 mmol/L (8-16); Blood Urea Nitrogen 43 mg/dL (9-20); Calcium 9.2 mg/dL (8.4-10.2); Carbon Dioxide 30 mmol/L (22-30); Chloride 104 mmol/L (98-107); Estimated CRCL calculation 25 ml/min; Estimated Glomerular Filt Rate 39; Glucose 119 mg/dL (65-110); Potassium 4.9 mmol/L (3.4-5.0); Sodium 139 mmol/L (137-145)
[2023-04-20 08:58] VITALS: PULSE 74
[2023-04-20] MEDS: METOPROLOL TARTRATE 12.5 MG TABLET FEED TUBE (08:58)
[2023-04-20] MEDS: VITAMIN B COMPLEX CAPSULE 1 CAP FEED TUBE (08:58)
[2023-04-20] MEDS: ATORVASTATIN 10 MG TABLET FEED TUBE (08:58)
[2023-04-20] MEDS: EMPAGLIFLOZIN 10 MG TABLET BY MOUTH (08:58)
[2023-04-20] MEDS: SODIUM ZIRCONIUM CYCLOSILICATE 10 GM POWD.PACK PO (08:59)
[2023-04-20 11:02] LABS: Potassium 4.7 mmol/L (3.4-5.0)
--- NOTE | 2023-04-20 12:55 | PM.DS ---
DS: Admitting Diagnosis Discharge Date 04/20/23 Admitting Diagnosis Dysphagia Recent CVA CKD HTN heart failure with preserved EF hypothyroidism chronic anticoagulation DS: Discharge Diagnosis Discharge Diagnosis (1) Dysphagia: Code(s): R13.10 - Dysphagia, unspecified Status: Acute (2) Cerebrovascular accident, old: Code(s): Z86.73 - Personal history of transient ischemic attack (TIA), and cerebral infarction without residual deficits Status: Acute (3) Chronic kidney disease: Code(s): N18.9 - Chronic kidney disease, unspecified Status: Chronic (4) Hypertension: Code(s): I10 - Essential (primary) hypertension Status: Chronic (5) Heart failure with preserved ejection fraction: Code(s): I50.30 - Unspecified diastolic (congestive) heart failure Status: Chronic (6) Hypothyroidism: Code(s): E03.9 - Hypothyroidism, unspecified Status: Chronic (7) Chronic anticoagulation: Code(s): 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 for dysphasia concerns and consideration of feeding tube. GI was consulted and patient had PEG tube placed on 04/13/23. He was started on tube feedings and has been tolerating them well. Case management worked o SNF placement. Patient was suppose to discharge yesterday but had hyperkalemia requiring 2 doses of Lokelma. Labs today revealed Hgb 9.6, Hct 33.9, BUN 43, Creatinine 1.70, K+ 4.7, BG 119-122. Patient is stable for discharge to SNF today. Final diagnosis: Dysphagia, Recent CVA, hyperkalemia Status at Discharge Cognitive/behavioral status at discharge: Alert and oriented x 0-1 Functional status at discharge: bed bound Overall status at discharge: patient is not back to baseline Time Spent with Patient Time attestation: Total time spent providing and/or coordinating discharge services: Time spent: Greater than 30 minutes Exam Narrative: General: In no acute distress, well nourished Head: atraumatic, no encephalopathy Eyes: EOMI, PERRLA ENT: moist mucous membranes, nasal passages clear Neck: supple Cardiac: RRR, Normal S1 and S2. Peripheral pulses intact. Respiratory: Lungs clear to auscultation, diminished in the bases, no adventitious lung sounds Gastrointestinal: soft, non-distended, non-tender, normoactive bowel sounds. : voiding without difficulty. 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 No wounds or lesions. Neuro: Alert, cranial nerves intact, no neuro deficits. Psych: normal mood, normal affect, interactive DS: Data Data Completed and Pending Completed studies during hospitalization: Abdomen x-ray Pending studies at discharge: none Labs on day of discharge: Labs from last 24 hours 04/20/23 04/20/23 04/19/23 10:48 05:25 15:06 WBC 7.0 RBC 3.99 L Hgb 9.6 L Hct 33.9 L MCV 85.0 MCH 24.1 L MCHC 28.3 L RDW 25.9 H Plt Count 239 MPV 9.8 Sodium 139 Potassium 4.7 4.9 5.6 H Chloride 104 Carbon Dioxide 30 Anion Gap 5 L BUN 43 H Creatinine 1.70 H Estim Creat Clear Calc 25 Estimated GFR 39 L Glucose 119 H Calcium 9.2 Procedures/Treatments: none Discharge Plan Discharge Attending physician on discharge: Catrachito Martinez Consulting providers: Rachel Brown; Lyndsey Berger; Vivian Pond; Sony Morgan; Stephen Delvalle; Germania Zaidi; Narendra Morin Discharging Clinician: Vivian Pond Anticipated Discharge Date/Time: 04/20/23 12:54 Patient Disposition: SNF Activity: as to
[2023-04-20 14:46] VITALS: BP 151/80; PULSE 92; RESP 18; TEMP 36.9; O2SAT 96
[2023-04-20 15:46] LABS: SARS-CoV-2 RNA PCR Positive (Negative)
== END 2023-04-20 16:30 ==
PROVIDERS: Internal Medicine Gastroenterology; Nurse Practitioner; Nurse Practitioner Acute Care; Physician Assistant; Admitting Provider Student in an Organized Health Care Education/Training Program; PCP Family Medicine; Visit Provider Internal Medicine
PROC: 0DH63UZ Insertion of Feeding Device into Stomach, Percutaneous Approach (ICD-10-PCS; CPT 43246; principal; 2023-04-13 16:00)
DX: K29.70 Gastritis, unspecified, without bleeding (principal); I13.0 Hypertensive heart and chronic kidney disease with heart failure and stage 1 through stage 4 chronic kidney disease, or unspecified chronic kidney disease; N18.9 Chronic kidney disease, unspecified; I50.30 Unspecified diastolic (congestive) heart failure; E78.5 Hyperlipidemia, unspecified; E03.9 Hypothyroidism, unspecified; I69.398 Other sequelae of cerebral infarction; E46 Unspecified protein-calorie malnutrition; Z68.27 Body mass index [BMI] 27.0-27.9, adult; I69.354 Hemiplegia and hemiparesis following cerebral infarction affecting left non-dominant side; N40.0 Benign prostatic hyperplasia without lower urinary tract symptoms; R41.3 Other amnesia; R94.31 Abnormal electrocardiogram [ECG] [EKG]; Z85.46 Personal history of malignant neoplasm of prostate; Z92.3 Personal history of irradiation; Z80.42 Family history of malignant neoplasm of prostate; Z79.01 Long term (current) use of anticoagulants; Z79.1 Long term (current) use of non-steroidal anti-inflammatories (NSAID); Z79.51 Long term (current) use of inhaled steroids; Z79.899 Other long term (current) drug therapy
CPT/HCPCS: 36415; 43246; 80048; 80069; 82948; 83690; 83735; 84132; 85025; 85027; 85610; 87635; 93005; 97110; 97161; 97166; 97530; 97535; A9270; G0378; J0612; J0690; J1650; J2704; J7120

== ENCOUNTER 2023-04-28 20:04 | Inpatient (IN) | payer MEDICARE, SELFPAY ==
[2023-04-28] VITALS (8 sets, daily range): BP systolic 112–142; BP diastolic 55–77; PULSE 90–104; RESP 16–25; TEMP 37.1; O2SAT 89–98
--- NOTE | ~2023-04-28 | XR_ITS ---
EXAMINATION: XR chest PICC line Exam Date/Time: 04/30/2023 19:07 SENIOR RESEARCH SCIENTIST HISTORY: PICC insertion Comparison: 04/30/2023 at 4:09 PM. RESULT: Lines, tubes, and devices: Right upper extremity PICC terminating at the cavoatrial junction. Lungs and pleura: Mild diffuse reticular opacities. Subsegmental bibasilar scar/atelectasis. Left co stophrenic angle blunting. Cardiomediastinal silhouette: Stable. Other: No acute osseous or upper abdominal finding. IMPRESSION: Right upper extremity PICC, in good position. Mild interstitial edema. Bibasilar scar/atelectasis. Po ssible small left pleural effusion. Reviewed, dictated and finalized at location K. OR RESEARCH SCIENTIST IMPRESSION: Right upper extremity PICC, in good position. Mild interstitial edema. Bibasila r scar/atelectasis. Possible small left pleural effusion.
--- NOTE | ~2023-04-28 | XR_ITS ---
EXAMINATION: XR chest 1V portable Exam Date/Time: 04/30/2023 16:00 MAIL CALLER HISTORY: Congestion/sob, COUGH Comparison: 04/28/2023. RESULT: Lines, tubes, and devices: None. Lungs and pleura: Minimal streaky bibasilar opacities may represent atelectasis or scar, otherwise c lear. Cardiomediastinal silhouette: Stable. Other: No acute osseous or upper abdominal finding. IMPRESSION: No acute cardiopulmonary process. Reviewed, dictated and finalized at location K. CALLER
--- NOTE | ~2023-04-28 | US_ITS ---
EXAMINATION: US renal BI DATE: 04/29/2023 15:06 INDICATION: Urinary tract infection and renal failure TECHNIQUE: Multiple ultrasound grayscale images of the kidneys were obtained. COMPARISON: 09/10/2013 FINDINGS: The right kidney measures 9.5 x 4.2 x 4.4 cm. The left kidney measures 9.7 x 5.9 x 5.4 cm. The kidney s demonstrate normal echogenicity. There is no hydronephrosis in either kidney. No stones identified . No significant interval change in a 1.7 cm hypoechoic nodule near the bladder outlet which given th e 10 years of stability is most likely benign and location likely represents intravesicular protrusio n of the prostate. IMPRESSION: 1. Normal kidneys without hydronephrosis. 2. Stable appearance of likely intravesicular protrusion of the prostate. Reviewed, dictated and finalized at location A. GER POST
--- NOTE | ~2023-04-28 | XR_ITS ---
EXAMINATION: XR chest 1V portable INDICATION: Hypoxia, COVID positive TECHNIQUE: Portable AP chest at 2052 hours COMPARISON: 03/09/2023 FINDINGS: There are airspace opacities throughout the left lung and in the right lung base. No pleura l effusion or pneumothorax. The cardiomediastinal silhouette is stable. IMPRESSION: 1. Airspace opacities throughout the left lung and in the right lung base, likely pneumonia. Reviewed, dictated and finalized at location F. HABILITATION ASSISTANT IMPRESSION: 1. Airspace opacities throughout the left lung and in the right lung base, like ly pneumonia.
--- NOTE | ~2023-04-28 | XR_ITS ---
EXAMINATION: XR chest 1V portable DATE: 05/03/2023 23:49 INDICATION: Hypoxia. TECHNIQUE: A single frontal view of the chest was obtained. COMPARISON: Chest single view 05/01/2023 FINDINGS: There are airspace opacities in the lower lung zones. No pleural effusion or pneumothorax. Cardiomegaly is noted. A right upper extremity peripherally inserted central venous catheter (PICC) i s seen with tip at the superior cavoatrial junction. IMPRESSION: 1. Stable airspace opacities in the lower lung zones, consistent with atelectasis versus pneumonia. 2. Cardiomegaly. Reviewed, dictated and finalized at location E. MP BOAT CAPTAIN IMPRESSION: 1. Stable airspace opacities in the lower lung zones, consistent with atelectas is versus pneumonia. 2. Cardiomegaly.
--- NOTE | ~2023-04-28 | XR_ITS ---
XR chest 1V portable DATE: 05/01/2023 13:25 INDICATION: Pneumonia TECHNIQUE: 05/01/2023 portable AP chest at 1321 hours COMPARISON: 04/30/2023 portable AP chest at 1910 hours FINDINGS: Right upper extremity PIC catheter tip is situated in the upper right atrial or superior ca voatrial area. Cardiomegaly. There is extensive thoracic aortic calcification. There is pulmonary vascular prominence, mild prominence of the minor fissure. There are bilateral per ihilar and lower lung infiltrates and/or atelectasis. Pulmonary edema and pneumonia are consideration s. Severe left glenohumeral osteoarthritis. Diffuse osteopenia. IMPRESSION: Increased perihilar and lower lung zone infiltrates and/or atelectasis, suggesting pulmon angelica edema and/or pneumonia Cardiomegaly, extensive thoracic aortic calcification Reviewed, dictated and finalized at location A. PING MILL TENDER IMPRESSION: Increased perihilar and lower lung zone infiltrates and/or atelecta sis, suggesting pulmonary edema and/or pneumonia Cardiomegaly, extensive thoracic aortic calcification
--- NOTE | 2023-04-28 20:26 | ECG_ITS ---
Measurements Intervals [place] Rate: 88 P: 31 ID: [id number] QRS: -54 QRSD: 144 T: 84 QT: 372 QTc: 452 Interpretive Statements SINUS RHYTHM BORDERLINE AV CONDUCTION DELAY RIGHT BUNDLE BRANCH BLOCK LEFT ANTERIOR FASCICULAR BLOCK LEFT VENTRICULAR HYPERTROPHY WITH ST-T CHANGE BASELINE ARTIFACT- I, III, AVR, AVL, AVF ABNORMAL ECG COMPARED TO ECG 04/13/2023 17:22:47 ST-T WAVE ABNORMALITY RESOLVED Electronically Signed On 04-29-2023 6:27:43 TIPPING MACHINE OPERATOR by Sony Morgan D.O.
[2023-04-28] MEDS: SODIUM CHLORIDE 0.9% IV 500 ML 999 ML IV CONT (20:48)
[2023-04-28 20:55] LABS: Basophils Percent Auto 0.2 % (0.2-1.2); Eosinophils Absolute Auto 0.4 K/mm3 (0-0.3); Hematocrit 31.4 % (42.0-52.0); Hemoglobin 8.7 g/dL (14.0-18.0); Immature Granulocyte Absolute 0.08 K/mm3 (0.00-0.031); Immature Granulocyte Percent A 0.9 % (0-0.5); Lymphocytes Absolute Auto 1.56 K/mm3 (0.9-3.2); Lymphocytes Percent Auto 18.3 % (18.3-44.2); Mean Corpuscular HGB Conc 27.7 g/dl (32-36); Mean Corpuscular Hemoglobin 24.1 pg (26-34); Mean Platelet Volume 9.7 fl (7.4-10.4); Monocytes Absolute Auto 0.6 K/mm3 (0.1-0.6); Monocytes Percent Auto 7.5 % (2.6-8.5); Neutrophils Absolute Auto 5.8 K/mm3 (1.3-6.7); Neutrophils Percent Auto 68.1 % (45.5-73.1); Platelet Count Result 317 k/mm3 (150-375); Red Blood Count 3.61 M/mm3 (4.6-6.20); Red Cell Distribution Width 25.2 % (11.5-14.5); White Blood Count 8.5 K/mm3 (4.5-10.0)
[2023-04-28 21:05] LABS: Alanine Aminotransferase 26 U/L (6-50); Albumin Level 3.1 g/dL (3.5-5.1); Alkaline Phosphatase 106 U/L (38-126); Anion Gap 6 mmol/L (8-16); Aspartate Amino Transferase 32 U/L (17-59); Bilirubin,Total 0.7 mg/dL (0.2-1.3); Blood Urea Nitrogen 55 mg/dL (9-20); Calcium 8.7 mg/dL (8.4-10.2); Carbon Dioxide 29 mmol/L (22-30); Chloride 102 mmol/L (98-107); Estimated CRCL calculation 26 ml/min; Estimated Glomerular Filt Rate 34; Glucose 84 mg/dL (65-110); Magnesium 2.4 mg/dL (1.6-2.3); Potassium 5.6 mmol/L (3.4-5.0); Sodium 137 mmol/L (137-145)
[2023-04-28 21:14] LABS: Hypochromasia 1+ (NORMAL); Platelet Estimate Adequate (Adequate)
[2023-04-28 21:15] LABS: Anisocytosis 1+ (NORMAL); Ovalocytes 1+ (NORMAL); Schistocytes None Seen (NORMAL)
[2023-04-28] MEDS: DEXTROSE 50% 25 GM/50 ML SYRINGE IV PUSH (21:28)
[2023-04-28] MEDS: SODIUM BICARBONATE 8.4% 50 MEQ/50 ML SYRINGE IV PUSH (21:30)
[2023-04-28 21:32] LABS: Influenza A QL RT-PCR Negative (Negative); Influenza B QL RT-PCR Negative (Negative); RSV RNA, RT-PCR Negative (Negative); SARS-CoV-2 RNA PCR Positive (Negative)
[2023-04-28] MEDS: INSULIN HUMAN REGULAR (*BKC) 100 UNITS/ML 10 UNITS IV PUSH (21:32)
--- NOTE | 2023-04-28 22:37 | ED.RECABL ---
HPI - Recheck/Abnormal Lab/Rx General Chief Complaint: Recheck/Abnormal Lab/Rx Stated Complaint: CRITICAL LABS, COVID+ Time Seen by Provider: 04/28/23 20:05 Source: patient Limitations: no limitations History of Present Illness HPI narrative: Patient is an 82-year-old male presents to the emergency department via EMS for reported abnormal labs drawn this morning at 5:00 a.m. which the patient had a potassium of 6.7 was noted to be low oxygen levels in the 80s over patient is noted to be on oxygen regularly with a history of his low oxygen levels is also reported to be alert orient x2 at baseline and patient is oriented to himself and does go by his middle name in addition to the year but believes that he is in [place]. Patient denies any current complaints. Patient denies chest pain, difficulty breathing, new cough, urinary discomfort, diarrhea, vomiting, melena, hematochezia, new numbness or weakness, confusion, headache, abdominal pain, rash, new or change medications. Patient states she has been taking all his medications as prescribed. Patient admits to neurological deficits from a recent stroke which is left side is weak in addition to his face. Patient also admits to being slightly weak in his right leg chronically without any acute changes. patient was reportedly recently diagnosed with COVID. Related Data Home Medications Medication Instructions Recorded Confirmed acetaminophen 650 mg rectal 650 mg RECTAL Q6H PRN Fever Or Pain 04/03/23 04/12/23 suppository albuterol sulfate 0.63 mg/3 mL 0.63 mg inhalation Q6H PRN 04/03/23 04/12/23 solution for nebulization Shortness Of Breath Or Wheezing hydralazine 25 mg tablet 25 mg PO Q8H 04/03/23 04/12/23 isosorbide dinitrate 10 mg tablet 10 mg PO Q8H 04/03/23 04/12/23 atorvastatin 10 mg tablet 10 mg PO DAILY 04/12/23 04/12/23 dapagliflozin propanediol 5 mg 5 mg PO DAILY 04/12/23 04/12/23 tablet famotidine 20 mg tablet 20 mg PO DAILY 04/12/23 04/12/23 heparin (porcine) 5,000 unit/mL 5,000 unit subcut Q8-10H 04/12/23 04/12/23 injection solution metoprolol tartrate 25 mg tablet 12.5 mg PO BID 04/12/23 04/12/23 oxymetazoline 0.05 % nasal spray 1 spray intranasal Q12H PRN 04/12/23 04/12/23 epistaxis scopolamine base 1 mg over 3 days 1 patch transdermal Q3D 04/12/23 04/12/23 transdermal patch vitamin B complex 1 cap PO DAILY 04/12/23 04/12/23 Allergies Allergy/AdvReac Type Severity Reaction Status Date / Time No Known Allergies Allergy Unknown Verified 04/08/23 17:07 Review of Systems Review of Systems: A 10 system review of systems was completed on the patient and is negative except for what is stated in the HPI. Nursing and ancillary documentation was reviewed. [facility] Past Medical History Medical History (Updated 04/29/23 @ 01:40 by Mario Tomlinson DO) Alcohol use Cerebrovascular accident (03/2023) Right MCA territory with left-sided weakness. Cerebrovascular accident, old Chronic anticoagulation Chronic kidney disease Baseline creatinine ranges from 2.10 to 2.40. Fuchs' corneal dystrophy Heart failure with preserved ejection fraction Hypertension Hypothyroidism Insomnia Memory loss of unknown cause Prostate cancer Status post radiation in 2020. Right retinal detachment Tremor Surgical History Surgical History History of corneal transplant Family History Family History Father Family history of osteoporosis Family history of cataracts Asthma Family history of chronic obstructive pulmonary disease Malignant neoplasm of prostate Mother Family history of Alzheimer's disease Other Family history of arthritis Family history of malignant neoplasm Social History Social History Social History: Surrogate medical decision maker: Talisha Livingston, . Code status: Full code.
[2023-04-28 23:23] LABS: Alveolar/Arterial O2 Gradient 113.3 mmHg; Base Excess ABG 3.1 mEq/l (+/-2.0); Fractional Inspired Oxygen 32 %; HCO3 ABG 27.4 mEq/l (22.0-26.0); Oxygen Content ABG 12.6 %vol (16.0-22.0); Oxyhemoglobin 92.2 % THb (90.0-100.0); PO2 ABG 66.9 mmHg (80.0-100.0); PO2 FiO2 Ratio Arterial Blood 2.09 %; Total Hemoglobin 9.7 g/dL (12.0-18.0); pH ABG 7.443 (7.350-7.450)
[2023-04-28 23:25] LABS: Device NASAL CANNULA; Modified Allen's Test Pass; Site Drawn LEFT BRACHIAL
--- NOTE | 2023-04-28 23:25 | PC.NURSE ---
Pt pulled out IV line. This RN attempted x2 for new access, Lisa RN to attempt.
[2023-04-28] MEDS: SODIUM POLYSTYRENE SULFONONATE 15 GM/60 ML BTL 30 GM PO (23:31)
[2023-04-28] MEDS: SODIUM CHLORIDE 0.9% IV 1,000 ML 999 ML IV CONT (23:32)
--- NOTE | 2023-04-28 23:38 | PC.NURSE ---
attempted to give pt Kayexalate. pt unable to drink it at this time.
[2023-04-28 23:43] LABS: Lactic Acid Reflex 1.1 mmol/L (0.7-2.0)
[2023-04-28 23:57] LABS: Troponin I 0.043 ng/mL (0.000-0.034)
[2023-04-29] VITALS (34 sets, daily range): BP systolic 110–154; BP diastolic 50–70; PULSE 77–103; RESP 16–27; TEMP 36.2–37.5; O2SAT 90–100; BMI 24.3
[2023-04-29] MEDS: AZITHROMYCIN 500 MG/NS 250 ML 500 MG/250 ML BAG 250 MG IVPB ×2 (00:07→23:33)
[2023-04-29 00:25] LABS: Lipase 153 U/L (23-300)
--- NOTE | 2023-04-29 01:22 | PC.NURSE ---
Assumed care of pt. Report from SHABBIR Pacheco. Pt sleeping, resp even and nonlabored at this time.
[2023-04-29 03:41] LABS: Glucose Point of Care 90 mg/dl (65-105)
[2023-04-29] MEDS: SODIUM CHLORIDE 0.9% IV 1,000 ML 125 ML IV CONT ×3 (04:02→23:32)
--- NOTE | 2023-04-29 04:34 | ADMGEN ---
This patient, Rhett Livingston, was admitted to IMU Room 204-01. @ 2471 Patient/family oriented to hospital policies and general routines including ID bracelet, bed and alarms, visiting hours, pain management, procedures, bathroom and other care routines, personal items, smoking policy, room service/diet, and visiting hours. Information on how to activate the Rapid Response Team has been discussed. Patient/Family are encouraged to report perceived risks to care and to ask questions if they do not understand what they are told or what they should do.
[2023-04-29 07:36] LABS: Appearance Urine Clear (Clear); Bacteria Urine 1+ /hpf; Bilirubin Urine Negative (Negative); Blood Urine Negative (Negative); Color Urine Yellow (Yellow); Glucose Urine UA 1+ mg/dL (Negative); Ketones Urine Negative (Negative); Leukocyte Esterase Ur 2+ LEU/UL (Negative); Need Manual Microscopic Reviewed; Nitrate Urine Negative (Negative); Non Pathogenic Casts 0-2; Protein Urine 1+ mg/dL (Negative); RBC Urine 21-50 /hpf (0-2); Specific Grav Ur 1.018 (1.001-1.035); Squamous Epithelial Cell Urine Occasional /hpf (Few); pH Urine 7.5 (5.0-9.0)
[2023-04-29 07:39] LABS: Add Urine Microscopic? YES
--- NOTE | 2023-04-29 08:56 | PM.IMHP ---
H&P: HPI History of Present Illness Date/Time: 04/29/23 08:56 Chief Complaint: Hypoxemia, hypokalemia Narrative: Patient has dementia and confused, patient is minimally responsive to verbal command, history is taken from ER physician Per your report, this 82 years old gentleman with history of CVA, possible ischemic dementia, hyperlipidemia, chronic anemia, brought to ED by EMS because of abdominal lab, hyperkalemia 6.7, O2 desaturation. Patient mental status baseline oriented x2. When patient arrived ED, patient denies any current complaints.? Patient denies chest pain, difficulty breathing, new cough, urinary discomfort, diarrhea, vomiting, melena, hematochezia, new numbness or weakness, confusion, headache, abdominal pain, rash, new or change medications.? Patient states she has been taking all his medications as prescribed.? Patient admits to neurological deficits from a recent stroke which is left side is weak in addition to his face.? Patient also admits to being slightly weak in his right leg chronically without any acute changes. patient was reportedly recently diagnosed with COVID. In the ED?cBC reveals a hemoglobin 8.7. comprehensive metabolic panel reveals a potassium of 5.6, BUN of 55, creatinine 1.90.? baseline creatinine appears to be approximately 1.7.? Patient appears to have an JUD with a prerenal appearance.? Magnesium is 2.4.? Rapid influenza/ RSV shows COVID-19 PCR testing is positive for COVID-19.? Troponin is 0.043.? Patient is not having any chest pain or difficulty breathing.? Lactic acid is 1.1.? TSH of 1.71.Chest x-ray report?airspace opacities throughout the left lung and in the right lung base, likely pneumonia.In the ED, patient is on oxygen 5 L/h Review of Systems Review of Systems: Patient is confused, unable to review of system completely PMFSH Past Medical History Medical History (Updated 04/29/23 @ 13:40 by Claudette Hatfield MD) Alcohol use Cerebrovascular accident (03/2023) Right MCA territory with left-sided weakness. Cerebrovascular accident, old Chronic anticoagulation Chronic kidney disease Baseline creatinine ranges from 2.10 to 2.40. Fuchs' corneal dystrophy Heart failure with preserved ejection fraction Hypertension Hypothyroidism Insomnia Memory loss of unknown cause Prostate cancer Status post radiation in 2020. Right retinal detachment Tremor Surgical History Surgical History History of corneal transplant Family History Family History Father Family history of osteoporosis Family history of cataracts Asthma Family history of chronic obstructive pulmonary disease Malignant neoplasm of prostate Mother Family history of Alzheimer's disease Other Family history of arthritis Family history of malignant neoplasm Social History Social History Social History: Surrogate medical decision maker: Talisha Livingston, . Code status: Full code. Smoking status: Never smoker Second hand tobacco smoke exposure: No Alcohol intake: current Drinks per week: 1 Alcohol use details: BEER Substance use: never Substance use type: does not use Do You Feel Safe in your Home?: No Lack of Transportation: No Lack of Food: Never True Current Housing: I Have Housing Concerned About Future Housing: No Difficulty Paying Gas/Electric Bills: No Difficulty Paying for Meds: No Currently Unemployed: No Education: High School Diploma/GED Difficulty w/ Childcare or Family Care: No Living arrangements: with family Additional living arrangements comments: Lives with in [place]. They have a son in [place] and a daughter who lives in the area. 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 Spiritual care concerns: No Meds Home Medications and Allergies Home Medi
--- NOTE | 2023-04-29 12:27 | PC.NURSE ---
SPOKE WITH NURSE AT [facility] - PT TESTED POSITIVE COVID ON 04/20/23
[2023-04-29] MEDS: PIPERACILLN/TAZ 3.375GM/NS50ML 3.375 GM/50 ML BAG IVPB ×3 (14:15→23:32)
[2023-04-29] MEDS: LEVOTHYROXINE SODIUM 50 MCG TABLET PO (14:57)
[2023-04-29] MEDS: REMDESIVIR 200 MG/NS 250 ML 200 MG/250 ML BAG 250 MG IVPB (14:57)
[2023-04-29 17:03] LABS: Glucose Point of Care 80 mg/dl (65-105)
[2023-04-29] MEDS: METOPROLOL TARTRATE 12.5 MG TABLET PO (18:11)
[2023-04-30] VITALS (16 sets, daily range): BP systolic 127–153; BP diastolic 57–93; PULSE 63–95; RESP 14–20; TEMP 36.1–37.3; O2SAT 91–97
[2023-04-30] MEDS: PIPERACILLN/TAZ 3.375GM/NS50ML 3.375 GM/50 ML BAG IVPB ×3 (06:05→21:56)
[2023-04-30] MEDS: LEVOTHYROXINE SODIUM 50 MCG TABLET PO (06:06)
--- NOTE | 2023-04-30 09:39 | PM.IMPN ---
Progress Note: A&P Assessment and Plan (1) Multifocal pneumonia: Code(s): J18.9 - Pneumonia, unspecified organism Status: Acute (2) Acute respiratory failure: Code(s): J96.00 - Acute respiratory failure, unspecified whether with hypoxia or hypercapnia Status: Acute (3) Hyperkalemia: Code(s): E87.5 - Hyperkalemia Status: Acute (4) Acute on chronic kidney failure: Code(s): N17.9 - Acute kidney failure, unspecified; N18.9 - Chronic kidney disease, unspecified Status: Acute (5) Acute hyperkalemia: Code(s): E87.5 - Hyperkalemia Status: Acute (6) Acute metabolic encephalopathy: Code(s): G93.41 - Metabolic encephalopathy Status: Acute (7) Cerebrovascular accident, old: Code(s): Z86.73 - Personal history of transient ischemic attack (TIA), and cerebral infarction without residual deficits Status: Acute (8) Ischemic vascular dementia: Code(s): F01.50 - Vascular dementia, unspecified severity, without behavioral disturbance, psychotic disturbance, mood disturbance, and anxiety Status: Acute (9) Diastolic heart failure: Code(s): I50.30 - Unspecified diastolic (congestive) heart failure Status: Acute (10) Pneumonia due to COVID-19 virus: Code(s): U07.1 - COVID-19; J12.82 - Pneumonia due to coronavirus disease 2018 Status: Acute (11) COVID-19 virus infection: Code(s): U07.1 - COVID-19 Status: Acute (12) UTI (urinary tract infection): Code(s): N39.0 - Urinary tract infection, site not specified Status: Acute Plan Acute metabolic encephalopathy Patient has ischemic dementia, mental status is worse than baseline, but I saw exam patient, patient was somnolent, not oriented x3 Likely due to multiple comorbidities including hypoxemia, pneumonia, COVID infection, acute renal failure Neuro check Treat underlying disease Multifocal pneumonia, superimposed with COVID-19 infection acute respiratory failure Multifocal pneumonia, patient has risk of aspiration, continue azithromycin 500 mg daily IV, switch from ceftriaxone to Zosyn IV Start approved her nebulizer Start remdesivir IV, dexamethasone 6 mg IV daily Consult street worker for evaluation and treatment Speech evaluation 04/30 0 O2 desaturation improving, patient is on 2 L oxygen via nasal cannular, repeat chest x-ray today JUD on CKD, Elevated creatinine 1.9, baseline 1.5 general 2023 Likely secondary to dehydration and UTI Avoid nephrotoxic medication Gentle IV fluid Follow-up BMP, BUN creatinine is trending down 04/30 UTI UA shows pyuria and microscopic hematuria 1+ bacteriuria Patient is on antibiotics see above Follow-up BMP Hyperkalemia Potassium 5.6, Start lokelma 10mg bid Follow-up BMP Chronic anemia No obvious bleeding Follow-up BMP History of stroke Left-sided residual weakness Consult PT OT care navigator for evaluation assisting placement PEG tube feeding Consult dietitian, tube feeding is not started yet Provide Jevity 40 ml/h Continue normal saline IV 75 mL/hour Subjective Date/time seen: 04/30/23 09:39 Interval history: Patient is afebrile, blood pressure stable over the night, patient needs 2 L oxygen via nasal cannular Exam Narrative: GENERAL: Pleasant, in no acute distress. Well-nourished. - EYES: EOMI. Anicteric. - HENT: Moist mucous membranes. - LUNGS: Clear to auscultation bilaterally, no wheezing, rhonchi, or rales. - CARDIOVASCULAR: Regular rate and rhythm. No murmur. No JVD. - ABDOMEN: Soft, non-tender and non-distended. No palpable masses. - EXTREMITIES: No edema. Peripheral pulses 2+. Non-tender. - NEUROLOGIC: No focal neurological deficits. CN II-XII grossly intact. - PSYCHIATRIC: Somnolent and not oriented x 3. Appropriate mood and affect. Left-sided residual weakness - SKIN: No rashes or lesions. Warm. - LYMPH: No cervical lymphadenopathy. Obje
[2023-04-30] MEDS: ENOXAPARIN 40 MG/0.4 ML SYRINGE SUB-Q (09:55)
[2023-04-30] MEDS: SODIUM ZIRCONIUM CYCLOSILICATE 10 GM POWD.PACK PO ×2 (09:56→18:27)
[2023-04-30] MEDS: METOPROLOL TARTRATE 12.5 MG TABLET PO ×2 (09:56→18:26)
[2023-04-30] MEDS: ATORVASTATIN 10 MG TABLET PO (09:56)
[2023-04-30 10:09] LABS: Hemoglobin 9.1 g/dL (14.0-18.0); Immature Granulocyte Absolute 0.05 K/mm3 (0.00-0.031); Immature Granulocyte Percent A 0.9 % (0-0.5); Lymphocytes Absolute Auto 1.13 K/mm3 (0.9-3.2); Lymphocytes Percent Auto 19.4 % (18.3-44.2); Mean Corpuscular HGB Conc 28.4 g/dl (32-36); Mean Corpuscular Hemoglobin 24.3 pg (26-34); Mean Corpuscular Volume 85.6 fl (80-100); Mean Platelet Volume 9.3 fl (7.4-10.4); Monocytes Absolute Auto 0.3 K/mm3 (0.1-0.6); Monocytes Percent Auto 5.5 % (2.6-8.5); Neutrophils Absolute Auto 4.3 K/mm3 (1.3-6.7); Neutrophils Percent Auto 74.2 % (45.5-73.1); Platelet Count Result 380 k/mm3 (150-375); Red Blood Count 3.74 M/mm3 (4.6-6.20); Red Cell Distribution Width 24.7 % (11.5-14.5); White Blood Count 5.8 K/mm3 (4.5-10.0)
[2023-04-30] MEDS: SODIUM CHLORIDE 0.9% IV 1,000 ML 125 ML IV CONT ×2 (10:11→18:26)
[2023-04-30 10:39] LABS: Anisocytosis 1+ (NORMAL); Hypochromasia 2+ (NORMAL); Schistocytes None Seen (NORMAL)
[2023-04-30 10:40] LABS: Alanine Aminotransferase 26 U/L (6-50); Albumin Level 2.9 g/dL (3.5-5.1); Alkaline Phosphatase 99 U/L (38-126); Anion Gap 8 mmol/L (8-16); Aspartate Amino Transferase 36 U/L (17-59); Bilirubin,Total 0.7 mg/dL (0.2-1.3); Blood Urea Nitrogen 43 mg/dL (9-20); Calcium 8.9 mg/dL (8.4-10.2); Carbon Dioxide 22 mmol/L (22-30); Chloride 111 mmol/L (98-107); Estimated CRCL calculation 27 ml/min; Estimated Glomerular Filt Rate 36; Glucose 100 mg/dL (65-110); Magnesium 2.3 mg/dL (1.6-2.3); Phosphorus 5.6 mg/dL (2.5-4.5); Potassium 5.6 mmol/L (3.4-5.0); Sodium 141 mmol/L (137-145)
[2023-04-30 10:48] LABS: Procalcitonin 0.3 ng/mL
--- NOTE | 2023-04-30 12:19 | PC.NURSE ---
Dr. Hatfield reports pt can have visitors after 5 days of remdesivir. Pt may have visitors starting 05/03/23.
[2023-04-30 18:34] LABS: Glucose Point of Care 113 mg/dl (65-105)
[2023-04-30] MEDS: CENTRAL LINE FLUSH 10 ML IV PUSH (21:57)
[2023-05-01] VITALS (18 sets, daily range): BP systolic 101–168; BP diastolic 55–95; PULSE 61–102; RESP 16–24; TEMP 36.1–36.9; O2SAT 92–100
[2023-05-01] MEDS: AZITHROMYCIN 500 MG/NS 250 ML 500 MG/250 ML BAG 250 MG IVPB (00:13)
[2023-05-01 00:25] LABS: Glucose Point of Care 211 mg/dl (65-105)
[2023-05-01] MEDS: SODIUM CHLORIDE 0.9% IV 1,000 ML 75 ML IV CONT (03:21)
[2023-05-01] MEDS: PIPERACILLN/TAZ 3.375GM/NS50ML 3.375 GM/50 ML BAG IVPB ×4 (03:22→21:43)
[2023-05-01] MEDS: LEVOTHYROXINE SODIUM 50 MCG TABLET PO (05:34)
[2023-05-01] MEDS: CENTRAL LINE FLUSH 10 ML IV PUSH ×3 (05:35→21:44)
[2023-05-01 05:51] LABS: Hematocrit 28.4 % (42.0-52.0); Hemoglobin 8.4 g/dL (14.0-18.0); Immature Granulocyte Absolute 0.03 K/mm3 (0.00-0.031); Immature Granulocyte Percent A 0.6 % (0-0.5); Lymphocytes Absolute Auto 0.63 K/mm3 (0.9-3.2); Lymphocytes Percent Auto 12.6 % (18.3-44.2); Mean Corpuscular HGB Conc 29.6 g/dl (32-36); Mean Corpuscular Hemoglobin 24.9 pg (26-34); Mean Corpuscular Volume 84.3 fl (80-100); Mean Platelet Volume 9.3 fl (7.4-10.4); Monocytes Absolute Auto 0.4 K/mm3 (0.1-0.6); Monocytes Percent Auto 7.6 % (2.6-8.5); Neutrophils Percent Auto 79.2 % (45.5-73.1); Platelet Count Result 324 k/mm3 (150-375); Red Blood Count 3.37 M/mm3 (4.6-6.20)
[2023-05-01 06:00] LABS: INR 1.2; Prothrombin Time 15.4 Seconds (11.1-14.7)
[2023-05-01 06:01] LABS: Alanine Aminotransferase 21 U/L (6-50); Albumin Level 2.6 g/dL (3.5-5.1); Alkaline Phosphatase 78 U/L (38-126); Anion Gap 5 mmol/L (8-16); Aspartate Amino Transferase 31 U/L (17-59); Bilirubin,Total 0.5 mg/dL (0.2-1.3); Blood Urea Nitrogen 45 mg/dL (9-20); Calcium 8.4 mg/dL (8.4-10.2); Carbon Dioxide 26 mmol/L (22-30); Chloride 111 mmol/L (98-107); Estimated CRCL calculation 27 ml/min; Estimated Glomerular Filt Rate 36; Glucose 198 mg/dL (65-110); Magnesium 2.3 mg/dL (1.6-2.3); Potassium 4.5 mmol/L (3.4-5.0); Sodium 142 mmol/L (137-145)
--- NOTE | 2023-05-01 09:27 | PM.IMPN ---
Progress Note: A&P Assessment and Plan (1) Multifocal pneumonia: Code(s): J18.9 - Pneumonia, unspecified organism Status: Acute (2) Acute respiratory failure: Code(s): J96.00 - Acute respiratory failure, unspecified whether with hypoxia or hypercapnia Status: Acute (3) Hyperkalemia: Code(s): E87.5 - Hyperkalemia Status: Acute (4) Acute on chronic kidney failure: Code(s): N17.9 - Acute kidney failure, unspecified; N18.9 - Chronic kidney disease, unspecified Status: Acute (5) Acute hyperkalemia: Code(s): E87.5 - Hyperkalemia Status: Acute (6) Acute metabolic encephalopathy: Code(s): G93.41 - Metabolic encephalopathy Status: Acute (7) Cerebrovascular accident, old: Code(s): Z86.73 - Personal history of transient ischemic attack (TIA), and cerebral infarction without residual deficits Status: Acute (8) Ischemic vascular dementia: Code(s): F01.50 - Vascular dementia, unspecified severity, without behavioral disturbance, psychotic disturbance, mood disturbance, and anxiety Status: Acute (9) Diastolic heart failure: Code(s): I50.30 - Unspecified diastolic (congestive) heart failure Status: Acute (10) Pneumonia due to COVID-19 virus: Code(s): U07.1 - COVID-19; J12.82 - Pneumonia due to coronavirus disease 2018 Status: Acute (11) COVID-19 virus infection: Code(s): U07.1 - COVID-19 Status: Acute (12) UTI (urinary tract infection): Code(s): N39.0 - Urinary tract infection, site not specified Status: Acute Plan Acute metabolic encephalopathy Patient has ischemic dementia, mental status is worse than baseline, but I saw exam patient, patient was somnolent, not oriented x3 Likely due to multiple comorbidities including hypoxemia, pneumonia, COVID infection, acute renal failure Neuro check Treat underlying disease s/w thiamine and folic acid Multifocal pneumonia, superimposed with COVID-19 infection acute respiratory failure Multifocal pneumonia, patient has risk of aspiration, continue azithromycin 500 mg daily IV, switch from ceftriaxone to Zosyn IV Start approved her nebulizer Start remdesivir IV, dexamethasone 6 mg IV daily Consult local intermodal truck driver for evaluation and treatment Speech evaluation 04/30 O2 desaturation improving, patient is on 2 L oxygen via nasal cannular, repeat chest x-ray JUD on CKD, Elevated creatinine 1.9, baseline 1.5 general 2023 Likely secondary to dehydration and UTI Avoid nephrotoxic medication received Gentle IV fluid D5 1/2NS Follow-up BMP, BUN creatinine is trending down 04/30 renal stable dc iv fluid 05/01 UTI UA shows pyuria and microscopic hematuria 1+ bacteriuria Patient is on antibiotics see above Follow-up BMP Hyperkalemia Potassium 5.6, Start lokelma 10mg bid Follow-up BMP 05/01 corrected Chronic anemia No obvious bleeding Follow-up CBC History of stroke Left-sided residual weakness Consult PT OT long term care social worker for evaluation assisting placement PEG tube feeding Consult dietitian, tube feeding is not started yet Provide Jevity 40 ml/h 05/01 dc iv fluid, provide free water Subjective Date/time seen: 05/01/23 09:27 Interval history: Patient is afebrile, patient is awake, not oriented, cannot provide history, patient has no obvious distress, blood pressure stable over the night, patient needs 2 L oxygen via nasal cannular Exam Narrative: GENERAL: Pleasant, in no acute distress. Well-nourished. - EYES: EOMI. Anicteric. - HENT: Moist mucous membranes. - LUNGS: Clear to auscultation bilaterally, no wheezing, rhonchi, or rales. - CARDIOVASCULAR: Regular rate and rhythm. No murmur. No JVD. - ABDOMEN: Soft, non-tender and non-distended. No palpable masses. - EXTREMITIES: No edema. Peripheral pulses 2+. Non-tender. - NEUROLOGIC: No focal neurological deficits. CN II-XII grossly intact. - PSYCHIATRIC:
[2023-05-01 09:41] LABS: Glucose Point of Care 162 mg/dl (65-105)
[2023-05-01] MEDS: DEXTROSE 5%/0.45% SOD CHL 1,000 ML 100 ML IV CONT (10:50)
[2023-05-01] MEDS: ENOXAPARIN 40 MG/0.4 ML SYRINGE SUB-Q (10:51)
[2023-05-01] MEDS: METOPROLOL TARTRATE 12.5 MG TABLET PO ×2 (10:51→18:53)
[2023-05-01] MEDS: SODIUM ZIRCONIUM CYCLOSILICATE 10 GM POWD.PACK PO ×2 (10:51→18:52)
[2023-05-01] MEDS: ATORVASTATIN 10 MG TABLET PO (10:52)
[2023-05-01] MEDS: REMDESIVIR 100 MG/NS 250 ML 100 MG/250 ML BAG 250 MG IVPB (10:55)
[2023-05-01] MEDS: FOLIC ACID 1 MG/0.2 ML INJ IV PUSH (10:55)
[2023-05-01] MEDS: THIAMINE HCL 200 MG/2 ML VIAL 100 MG IV PUSH (10:59)
--- NOTE | 2023-05-01 13:19 | PC.NURSE ---
Dr. Hatfield made aware pt missed 04/30/23 dose of Remdesivir due to loss of IV access. No new orders noted.
[2023-05-01 13:25] LABS: Glucose Point of Care 153 mg/dl (65-105)
[2023-05-01 18:10] LABS: Glucose Point of Care 189 mg/dl (65-105)
[2023-05-02] VITALS (17 sets, daily range): BP systolic 106–152; BP diastolic 51–81; PULSE 61–86; RESP 18–22; TEMP 36.2–36.9; O2SAT 95–100; BMI 11.0; BMI 25.2
[2023-05-02] MEDS: AZITHROMYCIN 500 MG/NS 250 ML 500 MG/250 ML BAG 250 MG IVPB ×2 (01:40→23:24)
[2023-05-02 01:48] LABS: Glucose Point of Care 182 mg/dl (65-105)
[2023-05-02] MEDS: PIPERACILLN/TAZ 3.375GM/NS50ML 3.375 GM/50 ML BAG IVPB ×4 (02:49→20:18)
[2023-05-02 05:28] LABS: Hematocrit 29.2 % (42.0-52.0); Hemoglobin 8.4 g/dL (14.0-18.0); Immature Granulocyte Absolute 0.04 K/mm3 (0.00-0.031); Immature Granulocyte Percent A 0.8 % (0-0.5); Lymphocytes Absolute Auto 0.97 K/mm3 (0.9-3.2); Lymphocytes Percent Auto 19.9 % (18.3-44.2); Mean Corpuscular HGB Conc 28.8 g/dl (32-36); Mean Corpuscular Hemoglobin 24.4 pg (26-34); Mean Corpuscular Volume 84.9 fl (80-100); Mean Platelet Volume 9.8 fl (7.4-10.4); Monocytes Absolute Auto 0.4 K/mm3 (0.1-0.6); Monocytes Percent Auto 7.6 % (2.6-8.5); Neutrophils Absolute Auto 3.5 K/mm3 (1.3-6.7); Neutrophils Percent Auto 71.7 % (45.5-73.1); Platelet Count Result 345 k/mm3 (150-375); Red Blood Count 3.44 M/mm3 (4.6-6.20); Red Cell Distribution Width 24.7 % (11.5-14.5); White Blood Count 4.9 K/mm3 (4.5-10.0)
[2023-05-02 05:34] LABS: Anion Gap 4 mmol/L (8-16); Blood Urea Nitrogen 38 mg/dL (9-20); Calcium 8.1 mg/dL (8.4-10.2); Carbon Dioxide 27 mmol/L (22-30); Chloride 110 mmol/L (98-107); Estimated CRCL calculation 33 ml/min; Estimated Glomerular Filt Rate 45; Glucose 159 mg/dL (65-110); Magnesium 2.1 mg/dL (1.6-2.3); Phosphorus 4.5 mg/dL (2.5-4.5); Potassium 4.2 mmol/L (3.4-5.0); Sodium 141 mmol/L (137-145)
[2023-05-02 05:43] LABS: Glucose Point of Care 169 mg/dl (65-105)
[2023-05-02] MEDS: LEVOTHYROXINE SODIUM 50 MCG TABLET PO (06:20)
[2023-05-02] MEDS: CENTRAL LINE FLUSH 10 ML IV PUSH ×3 (06:21→20:18)
[2023-05-02 07:07] LABS: Platelet Estimate Adequate (Adequate)
[2023-05-02 07:08] LABS: Anisocytosis 2+ (NORMAL); Hypochromasia 1+ (NORMAL); Poikilocytosis 1+ (NORMAL); Schistocytes None Seen (NORMAL)
--- NOTE | 2023-05-02 09:17 | PM.IMPN ---
Progress Note: A&P Assessment and Plan (1) Multifocal pneumonia: Code(s): J18.9 - Pneumonia, unspecified organism Status: Acute (2) Acute respiratory failure: Code(s): J96.00 - Acute respiratory failure, unspecified whether with hypoxia or hypercapnia Status: Acute (3) Hyperkalemia: Code(s): E87.5 - Hyperkalemia Status: Acute (4) Acute on chronic kidney failure: Code(s): N17.9 - Acute kidney failure, unspecified; N18.9 - Chronic kidney disease, unspecified Status: Acute (5) Acute hyperkalemia: Code(s): E87.5 - Hyperkalemia Status: Acute (6) Acute metabolic encephalopathy: Code(s): G93.41 - Metabolic encephalopathy Status: Acute (7) Cerebrovascular accident, old: Code(s): Z86.73 - Personal history of transient ischemic attack (TIA), and cerebral infarction without residual deficits Status: Acute (8) Ischemic vascular dementia: Code(s): F01.50 - Vascular dementia, unspecified severity, without behavioral disturbance, psychotic disturbance, mood disturbance, and anxiety Status: Acute (9) Diastolic heart failure: Code(s): I50.30 - Unspecified diastolic (congestive) heart failure Status: Acute (10) Pneumonia due to COVID-19 virus: Code(s): U07.1 - COVID-19; J12.82 - Pneumonia due to coronavirus disease 2018 Status: Acute (11) COVID-19 virus infection: Code(s): U07.1 - COVID-19 Status: Acute (12) UTI (urinary tract infection): Code(s): N39.0 - Urinary tract infection, site not specified Status: Acute Plan Acute metabolic encephalopathy Patient has ischemic dementia, mental status is worse than baseline, but I saw exam patient, patient was somnolent, not oriented x3 Likely due to multiple comorbidities including hypoxemia, pneumonia, COVID infection, acute renal failure Neuro check Treat underlying disease s/w thiamine and folic acid 05/02 Mental status is improving, although patient still not oriented, patient is awake, able to answer questions Multifocal pneumonia, superimposed with COVID-19 infection acute respiratory failure Multifocal pneumonia, patient has risk of aspiration, continue azithromycin 500 mg daily IV, switch from ceftriaxone to Zosyn IV Start approved her nebulizer Start remdesivir IV, dexamethasone 6 mg IV daily Consult machine ironer for evaluation and treatment Speech evaluation 04/30 O2 desaturation improving, patient is on 2 L oxygen via nasal cannular 05/02: Patient on 2 L oxygen, no obvious respiratory distress JUD on CKD, Elevated creatinine 1.9, baseline 1.5 general 2023 Likely secondary to dehydration and UTI Avoid nephrotoxic medication received Gentle IV fluid D5 1/2NS Follow-up BMP, BUN creatinine is trending down 04/30 renal stable dc iv fluid 05/01 05/02: BUN creatinine continue trending down, 38/1.5 UTI UA shows pyuria and microscopic hematuria 1+ bacteriuria Patient is on antibiotics see above 05/02 Urine culture grows Enterococcus, pending susceptibility, continue Zosyn IV Hyperkalemia Potassium 5.6, Start lokelma 10mg bid Follow-up BMP 05/01 corrected Chronic anemia No obvious bleeding Follow-up CBC History of stroke Left-sided residual weakness Consult PT OT skin care instructor for evaluation assisting placement PEG tube feeding Consult dietitian, tube feeding is not started yet Provide Jevity 40 ml/h 05/01 dc iv fluid, provide free water Patient may be discharged in 1-2 days with oral antibiotics Subjective Date/time seen: 05/02/23 09:17 Interval history: Patient is afebrile, patient is awake, not oriented, cannot provide history, patient has no obvious distress, blood pressure stable over the night, patient needs 2 L oxygen via nasal cannular Exam Narrative: GENERAL: Pleasant, in no acute distress. Well-nourished. - EYES: EOMI. Anicteric. - HENT: Moist mucous membranes. - LUNGS: Clear to a
[2023-05-02] MEDS: ENOXAPARIN 40 MG/0.4 ML SYRINGE SUB-Q (09:51)
[2023-05-02] MEDS: METOPROLOL TARTRATE 12.5 MG TABLET PO ×2 (09:52→17:49)
[2023-05-02] MEDS: FOLIC ACID 1 MG/0.2 ML INJ IV PUSH (09:52)
[2023-05-02] MEDS: ATORVASTATIN 10 MG TABLET PO (09:53)
[2023-05-02] MEDS: THIAMINE HCL 200 MG/2 ML VIAL 100 MG IV PUSH (09:54)
[2023-05-02] MEDS: REMDESIVIR 100 MG/NS 250 ML 100 MG/250 ML BAG 250 MG IVPB (10:11)
[2023-05-02 11:58] LABS: Glucose Point of Care 124 mg/dl (65-105)
[2023-05-02] MEDS: SODIUM ZIRCONIUM CYCLOSILICATE 10 GM POWD.PACK PO ×2 (12:26→17:49)
--- NOTE | 2023-05-02 13:12 | PC.NURSE ---
1310- orders for MT- report given to Neida RN- pt moved to room 252 via bed accompanied by staff-belongings with pt
[2023-05-02 17:33] LABS: Glucose Point of Care 141 mg/dl (65-105)
[2023-05-02 23:32] LABS: Glucose Point of Care 199 mg/dl (65-105)
[2023-05-03] VITALS (17 sets, daily range): BP systolic 133–161; BP diastolic 62–83; PULSE 60–83; RESP 14–20; TEMP 36.3–36.8; O2SAT 93–100; BMI 11.0
[2023-05-03] MEDS: PIPERACILLN/TAZ 3.375GM/NS50ML 3.375 GM/50 ML BAG IVPB ×4 (02:14→20:03)
[2023-05-03] MEDS: CENTRAL LINE FLUSH 10 ML IV PUSH ×3 (05:22→20:04)
[2023-05-03] MEDS: LEVOTHYROXINE SODIUM 50 MCG TABLET PO (05:22)
[2023-05-03 05:34] LABS: Glucose Point of Care 138 mg/dl (65-105)
[2023-05-03 05:55] LABS: Alanine Aminotransferase 27 U/L (6-50); Albumin Level 2.8 g/dL (3.5-5.1); Alkaline Phosphatase 78 U/L (38-126); Aspartate Amino Transferase 39 U/L (17-59); Bilirubin,Total 0.5 mg/dL (0.2-1.3)
[2023-05-03 07:03] LABS: INR 1.1; Prothrombin Time 14.6 Seconds (11.1-14.7)
[2023-05-03 07:31] LABS: Glucose Point of Care 162 mg/dl (65-105)
[2023-05-03] MEDS: METOPROLOL TARTRATE 12.5 MG TABLET PO ×2 (09:02→17:40)
[2023-05-03] MEDS: FOLIC ACID 1 MG/0.2 ML INJ IV PUSH (09:04)
[2023-05-03] MEDS: THIAMINE HCL 200 MG/2 ML VIAL 100 MG IV PUSH (09:05)
[2023-05-03] MEDS: ENOXAPARIN 40 MG/0.4 ML SYRINGE SUB-Q (09:05)
[2023-05-03] MEDS: SODIUM ZIRCONIUM CYCLOSILICATE 10 GM POWD.PACK PO ×2 (09:05→17:41)
[2023-05-03] MEDS: ATORVASTATIN 10 MG TABLET PO (09:05)
[2023-05-03 09:37] LABS: Hematocrit 31.5 % (42.0-52.0); Mean Corpuscular HGB Conc 28.6 g/dl (32-36); Mean Corpuscular Hemoglobin 24.6 pg (26-34); Mean Corpuscular Volume 86.1 fl (80-100); Mean Platelet Volume 10.1 fl (7.4-10.4); Platelet Count Result 348 k/mm3 (150-375); Red Blood Count 3.66 M/mm3 (4.6-6.20); White Blood Count 5.9 K/mm3 (4.5-10.0)
[2023-05-03 09:39] LABS: Anion Gap 7 mmol/L (8-16); Blood Urea Nitrogen 35 mg/dL (9-20); Calcium 8.2 mg/dL (8.4-10.2); Carbon Dioxide 26 mmol/L (22-30); Chloride 109 mmol/L (98-107); Estimated CRCL calculation 33 ml/min; Estimated Glomerular Filt Rate 45; Glucose 173 mg/dL (65-110); Sodium 142 mmol/L (137-145)
--- NOTE | 2023-05-03 11:07 | PCNFU ---
Nutrition Follow-Up Complete: Suboptimal energy intake related to tube feeding orders as evidenced by current tube feeding only providing 62% of estimated needs Goal: Meet estimated needs Patient is progressing towards goal. We will continue current goal. Pt current nutrition is Osmolite 1.5 at 55 ml/hr. Last recorded weight is 74.9 kg, stable Bowel Motility: +Bm reported 05/03 Labs Reviewed:No labs to report. Meds Noted:NovoLog, Lovenox, Thiamine, Folic Acid, Zosyn. Skin: WNL Additional Notes: Patient current with PEG feedings of Osmolite at 55 ml/hr. Tube feedings providing 1815 kcals/76 gms protein/922 ml water. Flush 30 ml q 4 hours. Patient is meeting 100% of calorie and protein needs. Agree with diet orders. Monitor tube feeding, tolerance, wt, labs. Follow up every Tuesday and Tuesday.
[2023-05-03] MEDS: REMDESIVIR 100 MG/NS 250 ML 100 MG/250 ML BAG 250 MG IVPB (11:42)
[2023-05-03 11:54] LABS: Glucose Point of Care 137 mg/dl (65-105)
--- NOTE | 2023-05-03 13:07 | PM.IMPN ---
Progress Note: A&P Assessment and Plan (1) Multifocal pneumonia: Code(s): J18.9 - Pneumonia, unspecified organism Status: Acute (2) Acute respiratory failure: Code(s): J96.00 - Acute respiratory failure, unspecified whether with hypoxia or hypercapnia Status: Acute (3) Hyperkalemia: Code(s): E87.5 - Hyperkalemia Status: Acute (4) Acute on chronic kidney failure: Code(s): N17.9 - Acute kidney failure, unspecified; N18.9 - Chronic kidney disease, unspecified Status: Acute (5) Acute hyperkalemia: Code(s): E87.5 - Hyperkalemia Status: Acute (6) Acute metabolic encephalopathy: Code(s): G93.41 - Metabolic encephalopathy Status: Acute (7) Cerebrovascular accident, old: Code(s): Z86.73 - Personal history of transient ischemic attack (TIA), and cerebral infarction without residual deficits Status: Acute (8) Ischemic vascular dementia: Code(s): F01.50 - Vascular dementia, unspecified severity, without behavioral disturbance, psychotic disturbance, mood disturbance, and anxiety Status: Acute (9) Diastolic heart failure: Code(s): I50.30 - Unspecified diastolic (congestive) heart failure Status: Acute (10) Pneumonia due to COVID-19 virus: Code(s): U07.1 - COVID-19; J12.82 - Pneumonia due to coronavirus disease 2018 Status: Acute (11) COVID-19 virus infection: Code(s): U07.1 - COVID-19 Status: Acute (12) UTI (urinary tract infection): Code(s): N39.0 - Urinary tract infection, site not specified Status: Acute Plan Acute metabolic encephalopathy Patient has ischemic dementia, mental status is worse than baseline, but I saw exam patient, patient was somnolent, not oriented x3 Likely due to multiple comorbidities including hypoxemia, pneumonia, COVID infection, acute renal failure Neuro check Treat underlying disease s/w thiamine and folic acid 05/02 Mental status is improving, although patient still not oriented, patient is awake, able to answer questions 05/03 Pt appears content an well Multifocal pneumonia, superimposed with COVID-19 infection acute respiratory failure Multifocal pneumonia, patient has risk of aspiration, continue azithromycin 500 mg daily IV, switch from ceftriaxone to Zosyn IV Start approved her nebulizer Completed remdesivir IV, dexamethasone 6 mg IV daily Consult manager of broadcast content for evaluation and treatment Speech evaluation 04/30 O2 desaturation improving, patient is on 2 L oxygen via nasal cannular 05/02: Patient on 2 L oxygen, no obvious respiratory distress 05/03 pt looks recovered from COVID JUD on CKD, Elevated creatinine 1.9, baseline 1.5 general 2023 Likely secondary to dehydration and UTI Avoid nephrotoxic medication received Gentle IV fluid D5 1/2NS Follow-up BMP, BUN creatinine is trending down 04/30 renal stable dc iv fluid 05/01 05/02: BUN creatinine continue trending down, 38/1.5 05/03: Creat is 1.5 UTI UA shows pyuria and microscopic hematuria 1+ bacteriuria Patient is on antibiotics see above 05/02 Urine culture grows Enterococcus, pending susceptibility, continue Zosyn IV 05/03 awaiting UC Hyperkalemia Potassium 5.6, Start lokelma 10mg bid Follow-up BMP 05/01 corrected 05/03 potassium is 4 Chronic anemia No obvious bleeding Follow-up CBC History of stroke Left-sided residual weakness Consult PT OT pediatric critical care nurse for evaluation assisting placement PEG tube feeding Consult dietitian, Provide Jevity 40 ml/h 05/03: pt receiving tube feeds Patient may be discharged in 1-2 days with oral antibiotics awaiting auth to go to [facility] Subjective Date/time seen: 05/03/23 13:07 Interval history: 82 years old gentleman with history of CVA, possible ischemic dementia, hyperlipidemia, chronic anemia, brought to ED by EMS because of abdominal lab, hyperkalemia 6.7, O2 desaturation.? pt admitted for pneumonia pt has
[2023-05-03 17:06] LABS: Glucose Point of Care 156 mg/dl (65-105)
--- NOTE | 2023-05-03 21:04 | ECG_ITS ---
Measurements Intervals [place] Rate: 58 P: 65 RI: 226 QRS: -46 QRSD: 150 T: -80 QT: 518 QTc: 512 Interpretive Statements SINUS BRADYCARDIA WITH FIRST DEGREE AV BLOCK VENTRICULAR PREMATURE COMPLEX AND NON-CONDUCTED PAC RIGHT BUNDLE BRANCH BLOCK LEFT ANTERIOR FASCICULAR BLOCK LEFT VENTRICULAR HYPERTROPHY AND ST-T CHANGE BASELINE ARTIFACT- I, II, AVR, AVL, AVF, V1-V4 ABNORMAL ECG COMPARED TO ECG 04/28/2023 20:32:52 SINUS BRADYCARDIA NOW PRESENT FIRST DEGREE AV BLOCK NOW PRESENT Electronically Signed On 05-04-2023 6:44:02 [employer] by Sony Morgan D.O.
[2023-05-03 21:26] LABS: Glucose Point of Care 175 mg/dl (65-105)
[2023-05-03 22:29] LABS: Anion Gap 3 mmol/L (8-16); Blood Urea Nitrogen 34 mg/dL (9-20); Calcium 8.2 mg/dL (8.4-10.2); Carbon Dioxide 28 mmol/L (22-30); Chloride 110 mmol/L (98-107); Estimated CRCL calculation 37 ml/min; Estimated Glomerular Filt Rate 53; Glucose 175 mg/dL (65-110); Magnesium 1.9 mg/dL (1.6-2.3); Potassium 4.2 mmol/L (3.4-5.0); Sodium 141 mmol/L (137-145)
[2023-05-03 22:50] LABS: Troponin I 0.472 ng/mL (0.000-0.034)
--- NOTE | 2023-05-03 23:35 | P.PNCROSS_ITS ---
Event Note Event Note Event Note: RN called with reports of intermittent bradycardia which she had not seen previ ous nights she has cared for this patient. EKG was ordered and demonstrated T- wave inversions in leads II, AVF, V4-6 which are new compared to EKG obtained several days ago. He is unable to provide any history and thus it is nearly impossible to say if he is having any chest discomfort. Troponin was ordered and came back at 0.472. Patient does have an oxygen requirement of 2 L but appears in no respiratory distress. He sounds to be in a regular rate and rhythm at this time. was contacted and she indicates that she would not want any further evaluation for possible cardiac event and she goes on to say when he was hospitalized last month that they had talked about doing an ischemic workup which was also declined. Thus we are not going to pursue this and she wishes to keep the patient comfortable. We will continue with antibiotics and treatment for pneumonia and continue his home medications. As she wants his care to be more comfort focus, we will discontinue telemetry. I have asked care coordination to consult to discuss palliative care.
--- NOTE | 2023-05-03 23:44 | PC.NURSE ---
Spoke with [place] regarding pt changes. request comfort based care at this point. Dr Arambula spoke with as well who confirmed that she wants comfort based care.
[2023-05-04] VITALS (7 sets, daily range): BP systolic 143–154; BP diastolic 67–77; PULSE 60–75; RESP 16–18; TEMP 36.2–36.7; O2SAT 95–100
[2023-05-04] MEDS: INSULIN ASPART (*BKC) 100 UNITS/ML SUB-Q (00:05)
[2023-05-04 00:08] LABS: Glucose Point of Care 204 mg/dl (65-105)
[2023-05-04] MEDS: PIPERACILLN/TAZ 3.375GM/NS50ML 3.375 GM/50 ML BAG IVPB ×2 (02:50→11:19)
[2023-05-04] MEDS: LEVOTHYROXINE SODIUM 50 MCG TABLET PO (05:31)
[2023-05-04] MEDS: CENTRAL LINE FLUSH 10 ML IV PUSH ×3 (05:31→20:31)
[2023-05-04 05:57] LABS: Hematocrit 31.3 % (42.0-52.0); Mean Corpuscular HGB Conc 28.8 g/dl (32-36); Mean Corpuscular Hemoglobin 24.5 pg (26-34); Mean Corpuscular Volume 85.3 fl (80-100); Mean Platelet Volume 9.6 fl (7.4-10.4); Platelet Count Result 319 k/mm3 (150-375); Red Blood Count 3.67 M/mm3 (4.6-6.20); Red Cell Distribution Width 24.9 % (11.5-14.5); White Blood Count 6.3 K/mm3 (4.5-10.0)
[2023-05-04 06:00] LABS: Anion Gap 5 mmol/L (8-16); Blood Urea Nitrogen 34 mg/dL (9-20); Calcium 8.1 mg/dL (8.4-10.2); Carbon Dioxide 28 mmol/L (22-30); Chloride 108 mmol/L (98-107); Estimated CRCL calculation 35 ml/min; Estimated Glomerular Filt Rate 48; Glucose 142 mg/dL (65-110); Potassium 4.2 mmol/L (3.4-5.0); Sodium 141 mmol/L (137-145)
[2023-05-04 06:03] LABS: Glucose Point of Care 157 mg/dl (65-105)
[2023-05-04] MEDS: METOPROLOL TARTRATE 12.5 MG TABLET PO ×2 (11:18→18:41)
[2023-05-04] MEDS: ATORVASTATIN 10 MG TABLET PO (11:19)
[2023-05-04] MEDS: FOLIC ACID 1 MG/0.2 ML INJ IV PUSH (11:19)
[2023-05-04] MEDS: ENOXAPARIN 40 MG/0.4 ML SYRINGE SUB-Q (11:19)
[2023-05-04] MEDS: SODIUM ZIRCONIUM CYCLOSILICATE 10 GM POWD.PACK PO (11:20)
[2023-05-04] MEDS: THIAMINE HCL 200 MG/2 ML VIAL 100 MG IV PUSH (11:43)
[2023-05-04 12:35] LABS: Glucose Point of Care 127 mg/dl (65-105)
--- NOTE | 2023-05-04 14:35 | PM.IMPN ---
Progress Note: A&P Assessment and Plan (1) Multifocal pneumonia: Code(s): J18.9 - Pneumonia, unspecified organism Status: Acute (2) Acute respiratory failure: Code(s): J96.00 - Acute respiratory failure, unspecified whether with hypoxia or hypercapnia Status: Acute (3) Hyperkalemia: Code(s): E87.5 - Hyperkalemia Status: Acute (4) Acute on chronic kidney failure: Code(s): N17.9 - Acute kidney failure, unspecified; N18.9 - Chronic kidney disease, unspecified Status: Acute (5) Acute hyperkalemia: Code(s): E87.5 - Hyperkalemia Status: Acute (6) Acute metabolic encephalopathy: Code(s): G93.41 - Metabolic encephalopathy Status: Acute (7) Cerebrovascular accident, old: Code(s): Z86.73 - Personal history of transient ischemic attack (TIA), and cerebral infarction without residual deficits Status: Acute (8) Ischemic vascular dementia: Code(s): F01.50 - Vascular dementia, unspecified severity, without behavioral disturbance, psychotic disturbance, mood disturbance, and anxiety Status: Acute (9) Diastolic heart failure: Code(s): I50.30 - Unspecified diastolic (congestive) heart failure Status: Acute (10) Pneumonia due to COVID-19 virus: Code(s): U07.1 - COVID-19; J12.82 - Pneumonia due to coronavirus disease 2018 Status: Acute (11) COVID-19 virus infection: Code(s): U07.1 - COVID-19 Status: Acute (12) UTI (urinary tract infection): Code(s): N39.0 - Urinary tract infection, site not specified Status: Acute Plan Acute metabolic encephalopathy Patient has ischemic dementia, mental status is worse than baseline, but I saw exam patient, patient was somnolent, not oriented x3 Likely due to multiple comorbidities including hypoxemia, pneumonia, COVID infection, acute renal failure Neuro check Treat underlying disease s/w thiamine and folic acid 05/02 Mental status is improving, although patient still not oriented, patient is awake, able to answer questions 05/03 Pt appears content an well 05/04 family deciding about comfort care Multifocal pneumonia, superimposed with COVID-19 infection acute respiratory failure Multifocal pneumonia, patient has risk of aspiration, continue azithromycin 500 mg daily IV, switch from ceftriaxone to Zosyn IV Start approved her nebulizer Completed remdesivir IV, dexamethasone 6 mg IV daily Consult ssrs developer for evaluation and treatment Speech evaluation 04/30 O2 desaturation improving, patient is on 2 L oxygen via nasal cannular 05/02: Patient on 2 L oxygen, no obvious respiratory distress 05/03 pt looks recovered from COVID 05/04 issues with low heart rates in the night family do not want tele monitoring or and procedures considering comfort care JUD on CKD, Elevated creatinine 1.9, baseline 1.5 general 1st 2023 Likely secondary to dehydration and UTI Avoid nephrotoxic medication received Gentle IV fluid D5 1/2NS Follow-up BMP, BUN creatinine is trending down 04/30 renal stable dc iv fluid 05/01 05/02: BUN creatinine continue trending down, 38/1.5 05/03: Creat is 1.5 05/04: Creat is 1.4 UTI UA shows pyuria and microscopic hematuria 1+ bacteriuria Patient is on antibiotics see above 05/02 Urine culture grows Enterococcus, pending susceptibility 05/03 awaiting UC 05/04 can dc iv zosyn bc is neg uc is positive but pt is asymptomatic denies any urinary compliants Hyperkalemia Potassium 5.6, Start lokelma 10mg bid Follow-up BMP 05/01 corrected 05/03 potassium is 4 05/04 potassium is 4 Chronic anemia No obvious bleeding History of stroke Left-sided residual weakness Consult PT OT childcare teacher for evaluation assisting placement PEG tube feeding Consult dietitian, Provide Jevity 40 ml/h 05/03: pt receiving tube feeds 05/04: doing well with feeds continue Patient may be discharged in 1-2 days with oral antibiotics awaiting auth
[2023-05-04 17:29] LABS: Glucose Point of Care 134 mg/dl (65-105)
[2023-05-04] MEDS: AMOXICILLIN/CLAVULANATE K 875-125 MG TAB 1 TABLET PO (18:41)
[2023-05-05 00:32] LABS: Glucose Point of Care 189 mg/dl (65-105)
[2023-05-05] MEDS: LEVOTHYROXINE SODIUM 50 MCG TABLET PO (05:25)
[2023-05-05] MEDS: CENTRAL LINE FLUSH 10 ML IV PUSH (05:25)
[2023-05-05 05:56] LABS: Glucose Point of Care 175 mg/dl (65-105)
[2023-05-05 07:02] VITALS: BP 142/77; PULSE 91; RESP 16; TEMP 36.5; O2SAT 97
[2023-05-05 09:41] VITALS: PULSE 88
[2023-05-05] MEDS: ENOXAPARIN 40 MG/0.4 ML SYRINGE SUB-Q (09:41)
[2023-05-05] MEDS: METOPROLOL TARTRATE 12.5 MG TABLET PO ×2 (09:41→16:36)
[2023-05-05] MEDS: AMOXICILLIN/CLAVULANATE K 875-125 MG TAB 1 TABLET PO (09:41)
[2023-05-05 09:42] VITALS: RESP 16; O2SAT 97
[2023-05-05] MEDS: FOLIC ACID 1 MG/0.2 ML INJ IV PUSH (09:42)
[2023-05-05] MEDS: ATORVASTATIN 10 MG TABLET PO (09:42)
[2023-05-05] MEDS: NEOMYCIN/POLYMYXIN/BACITRACIN OINTMENT PACKET 1 PACKET (11:12)
[2023-05-05 12:00] LABS: Glucose Point of Care 125 mg/dl (65-105)
--- NOTE | 2023-05-05 12:35 | PM.DS ---
DS: Admitting Diagnosis Discharge Date 05/05/2023 Admitting Diagnosis Hypoxemia, hypokalemia DS: Discharge Diagnosis Discharge Diagnosis (1) Multifocal pneumonia: Code(s): J18.9 - Pneumonia, unspecified organism Status: Acute (2) Acute respiratory failure: Code(s): J96.00 - Acute respiratory failure, unspecified whether with hypoxia or hypercapnia Status: Acute (3) Hyperkalemia: Code(s): E87.5 - Hyperkalemia Status: Acute (4) Acute on chronic kidney failure: Code(s): N17.9 - Acute kidney failure, unspecified; N18.9 - Chronic kidney disease, unspecified Status: Acute (5) Acute hyperkalemia: Code(s): E87.5 - Hyperkalemia Status: Acute (6) Acute metabolic encephalopathy: Code(s): G93.41 - Metabolic encephalopathy Status: Acute (7) Cerebrovascular accident, old: Code(s): Z86.73 - Personal history of transient ischemic attack (TIA), and cerebral infarction without residual deficits Status: Acute (8) Ischemic vascular dementia: Code(s): F01.50 - Vascular dementia, unspecified severity, without behavioral disturbance, psychotic disturbance, mood disturbance, and anxiety Status: Acute (9) Diastolic heart failure: Code(s): I50.30 - Unspecified diastolic (congestive) heart failure Status: Acute (10) Pneumonia due to COVID-19 virus: Code(s): U07.1 - COVID-19; J12.82 - Pneumonia due to coronavirus disease 2018 Status: Acute (11) COVID-19 virus infection: Code(s): U07.1 - COVID-19 Status: Acute (12) UTI (urinary tract infection): Code(s): N39.0 - Urinary tract infection, site not specified Status: Acute Plan Acute metabolic encephalopathy Patient has ischemic dementia, mental status is worse than baseline, but I saw exam patient, patient was somnolent, not oriented x3 Likely due to multiple comorbidities including hypoxemia, pneumonia, COVID infection, acute renal failure Neuro check Treat underlying disease s/w thiamine and folic acid 05/02 Mental status is improving, although patient still not oriented, patient is awake, able to answer questions 05/03 Pt appears content an well 05/04 family deciding about comfort care 05/05 family meeting with hospice team today regarding dc to facility with hospice care Multifocal pneumonia, superimposed with COVID-19 infection acute respiratory failure Multifocal pneumonia, patient has risk of aspiration, continue azithromycin 500 mg daily IV, switch from ceftriaxone to Zosyn IV Start approved her nebulizer Completed remdesivir IV, dexamethasone 6 mg IV daily Consult merchandise flow manager for evaluation and treatment Speech evaluation 04/30 O2 desaturation improving, patient is on 2 L oxygen via nasal cannular 05/02: Patient on 2 L oxygen, no obvious respiratory distress 05/03 pt looks recovered from COVID 05/04 issues with low heart rates in the night family do not want tele monitoring or and procedures considering comfort care JUD on CKD, Elevated creatinine 1.9, baseline 1.5 general 2023 Likely secondary to dehydration and UTI Avoid nephrotoxic medication received Gentle IV fluid D5 1/S Follow-up BMP, BUN creatinine is trending down 04/30 renal stable dc iv fluid 05/01 05/02: BUN creatinine continue trending down, 38/1.5 05/03: Creat is 1.5 05/04: Creat is 1.4 UTI UA shows pyuria and microscopic hematuria 1+ bacteriuria Patient is on antibiotics see above 05/02 Urine culture grows Enterococcus, pending susceptibility 05/03 awaiting UC 05/04 can dc iv zosyn bc is neg uc is positive but pt is asymptomatic denies any urinary compliants Hyperkalemia Potassium 5.6, Start lokelma 10mg bid Follow-up BMP 05/01 corrected 05/03 potassium is 4 05/04 potassium is 4 05/05 potassium corrected Chronic anemia No obvious bleeding History of stroke Left-sided residual weakness Consult PT OT child care for evaluation rigoberto carreon
[2023-05-05 13:46] VITALS: BP 147/61; PULSE 60; RESP 18; TEMP 36.6; O2SAT 99
[2023-05-05 16:36] VITALS: PULSE 60
[2023-05-05 17:06] LABS: Glucose Point of Care 80 mg/dl (65-105)
== END 2023-05-05 19:55 | disposition hospice, home (50) | DRG 177 ==
LOC: ANHED 04-29 01:40 → ANHIMU 04-29 02:57 → ANH2MED 05-02 13:14
PROVIDERS: Hospitalist; Physician Assistant; Admitting Provider Internal Medicine; Emergency Provider Student in an Organized Health Care Education/Training Program; PCP Family Medicine; Visit Provider Family Medicine
DX: U07.1 COVID-19 (principal); G93.41 Metabolic encephalopathy; J12.82 Pneumonia due to coronavirus disease 2019; J96.01 Acute respiratory failure with hypoxia; N17.9 Acute kidney failure, unspecified; I69.354 Hemiplegia and hemiparesis following cerebral infarction affecting left non-dominant side; I13.0 Hypertensive heart and chronic kidney disease with heart failure and stage 1 through stage 4 chronic kidney disease, or unspecified chronic kidney disease; N39.0 Urinary tract infection, site not specified; I50.32 Chronic diastolic (congestive) heart failure; B95.2 Enterococcus as the cause of diseases classified elsewhere; N18.9 Chronic kidney disease, unspecified; E86.0 Dehydration; E87.5 Hyperkalemia; R00.1 Bradycardia, unspecified; D64.9 Anemia, unspecified; F01.50 Vascular dementia, unspecified severity, without behavioral disturbance, psychotic disturbance, mood disturbance, and anxiety; E03.9 Hypothyroidism, unspecified; R13.10 Dysphagia, unspecified; H18.519 Endothelial corneal dystrophy, unspecified eye; E78.5 Hyperlipidemia, unspecified; Z79.01 Long term (current) use of anticoagulants; Z85.46 Personal history of malignant neoplasm of prostate; Z94.7 Corneal transplant status; Z51.5 Encounter for palliative care; Z93.1 Gastrostomy status
CPT/HCPCS: 36415; 36569; 36600; 71045; 76775; 80048; 80053; 80076; 81001; 82805; 82948; 83605; 83690; 83735; 84100; 84145; 84443; 84484; 85025; 85027; 85610; 87040; 87077; 87086; 87088; 87186; 87637; 93005; 96361; 96365; 96366; 96367; 96375; 97110; 97112; 97163; 97165; 97530; 97535; 99285; A9270; C1751; G0378; J0248; J0456; J0696; J1100; J1650; J1815; J2543; J3411; J7030; J7040